=== PATIENT | female | born 1955 | race Caucasian/White ===

== ENCOUNTER 2022-06-29 09:34 | Outpatient (REF) | payer OTHER, SELFPAY ==
[2022-06-29 09:52] LABS: MANUAL DIFF FLAG NO
[2022-06-29 10:30] LABS: Basophils Absolute Auto 0.1 X10*3/uL (0.0-0.2); Basophils Percent Auto 0.9 % (0-2); Eosinophils Absolute Auto 0.1 X10*3/uL (0.0-0.4); Hematocrit 40.1 % (37.0-47.0); Hemoglobin 13.4 g/dl (12.0-16.0); Imm Gran Abs Auto 0.02 X10*3/uL (0.00-0.03); Imm Gran Pct Auto 0.4 % (0.0-0.4); Lymphocytes Absolute Auto 1.2 X10*3/uL (1.2-4.9); Lymphocytes Percent Auto 22.7 % (20-40); Mean Corpuscular HGB Conc 33.4 g/dl (31.0-35.0); Mean Corpuscular Hemoglobin 34.4 pg (27.0-33.0); Mean Corpuscular Volume 103.1 fL (80.0-98.0); Mean Platelet Volume 10.6 fL (9.4-12.3); Monocytes Absolute Auto 0.3 X10*3/uL (0.1-1.2); Monocytes Percent Auto 6.3 % (2-11); Neutrophils Absolute Auto 3.7 x10*3/uL (2.0-8.3); Neutrophils Percent Auto 67.7 % (45-73); Platelet Count 265 X10*3/uL (160-400); Red Blood Count 3.89 X10*6/uL (4.20-5.50); Red Cell Distribution Width 14.3 % (11.0-16.0); Retic HGB Equivalent 40.5 pg (30.0-35.0); Reticulocyte Percent 1.9 % (0.5-1.8); Reticulocytes Absolute 0.073 X10*6/uL (0.026-0.095); White Blood Count 5.4 X10*3/uL (4.8-10.8)
[2022-06-29 11:19] LABS: Alanine Aminotransferase 76 U/L (0-31); Albumin Level 4.3 g/dL (3.5-5.0); Alkaline Phosphatase 63 U/L (39-117); Anion Gap 13 (12-20); Aspartate Amino Transferase 46 U/L (5-31); Bilirubin Total 0.7 mg/dL (0.0-1.0); Blood Urea Nitrogen 13 mg/dL (9-16); Calcium 9.4 mg/dL (8.4-10.2); Carbon Dioxide 28 mmol/L (22-29); Chloride 105 mmol/L (96-108); Estimated Glomerular Filt Rate > 60; Glucose Random 121 mg/dL (60-115); Potassium 4.3 mmol/L (3.3-5.1); Sodium 142 mmol/L (135-145); Total Protein 6.3 g/dL (6.5-8.0)
[2022-06-29 11:35] LABS: Folate 19.5 ng/mL (> or = 4.0); Thyroid Stimulating Hormone 1.81 uIU/mL (0.32-4.0); Vitamin B12 861 pg/mL (200-900)
[2022-06-30 05:20] LABS: HIV AB/AG Nonreactive (Nonreactive); HIV Num 1 0.06 S/CO (0.00-0.99)
[2022-07-01 01:49] LABS: Erythropoietin (EPO) 9.2 mIU/mL (2.6-18.5)
[2022-07-01 14:28] LABS: Haptoglobin 120 mg/dL (43-212)
[2022-07-01 15:34] LABS: IgA 143 mg/dL (70-320); IgG 655 mg/dL (600-1540); IgM 39 mg/dL (50-300)
[2022-07-01 23:04] LABS: Prot Elec - Albumin 4.2 g/dL (3.8-4.8); Prot Elec - Alpha1 0.3 g/dL (0.2-0.3); Prot Elec - Alpha2 0.7 g/dL (0.5-0.9); Prot Elec - Beta 1 0.4 g/dL (0.4-0.6); Prot Elec - Beta 2 0.3 g/dL (0.2-0.5); Prot Elec - Gamma 0.6 g/dL (0.8-1.7); Prot Elec - Total Protein 6.4 g/dL (6.1-8.1)
== END 2022-06-29 09:35 | disposition home or self-care (01) ==
LOC: HO.LAB 09:34
PROVIDERS: PCP Family Medicine; Visit Provider Internal Medicine Medical Oncology
DX: D53.9 Nutritional anemia, unspecified (principal)
CPT/HCPCS: 36415; 80053; 82607; 82668; 82746; 82784; 83010; 84165; 84443; 85025; 85045; 86334; 87389

== ENCOUNTER 2022-09-14 09:57 | Outpatient (REF) | payer OTHER, SELFPAY ==
[2022-09-14 10:18] LABS: MANUAL DIFF FLAG NO
[2022-09-14 13:19] LABS: Basophils Percent Auto 0.3 % (0-2); Eosinophils Absolute Auto 0.2 X10*3/uL (0.0-0.4); Hematocrit 39.1 % (37.0-47.0); Imm Gran Abs Auto 0.11 X10*3/uL (0.00-0.03); Imm Gran Pct Auto 1.2 % (0.0-0.4); Lymphocytes Absolute Auto 3.5 X10*3/uL (1.2-4.9); Lymphocytes Percent Auto 37.8 % (20-40); Mean Corpuscular HGB Conc 33.2 g/dl (31.0-35.0); Mean Corpuscular Hemoglobin 34.9 pg (27.0-33.0); Mean Corpuscular Volume 105.1 fL (80.0-98.0); Mean Platelet Volume 10.5 fL (9.4-12.3); Monocytes Absolute Auto 0.7 X10*3/uL (0.1-1.2); Monocytes Percent Auto 7.7 % (2-11); Neutrophils Absolute Auto 4.7 x10*3/uL (2.0-8.3); Platelet Count 292 X10*3/uL (160-400); Red Blood Count 3.72 X10*6/uL (4.20-5.50); Red Cell Distribution Width 13.2 % (11.0-16.0); White Blood Count 9.3 X10*3/uL (4.8-10.8)
[2022-09-14 13:33] LABS: Alanine Aminotransferase 19 U/L (0-31); Albumin Level 3.9 g/dL (3.5-5.0); Alkaline Phosphatase 43 U/L (39-117); Anion Gap 12 (12-20); Aspartate Amino Transferase 16 U/L (5-31); Bilirubin Total 0.5 mg/dL (0.0-1.0); Blood Urea Nitrogen 12 mg/dL (9-16); Carbon Dioxide 29 mmol/L (22-29); Chloride 105 mmol/L (96-108); Estimated Glomerular Filt Rate > 60; Gamma Glutamyl Transpeptidase 16 U/L (7-33); Glucose Random 76 mg/dL (60-115); Potassium 4.1 mmol/L (3.3-5.1); Sodium 142 mmol/L (135-145); Total Protein 5.6 g/dL (6.5-8.0)
== END 2022-09-14 09:58 | disposition home or self-care (01) ==
LOC: HO.LAB 09:57
PROVIDERS: Visit Provider Internal Medicine Medical Oncology
DX: D53.9 Nutritional anemia, unspecified (principal); E78.2 Mixed hyperlipidemia
CPT/HCPCS: 36415; 80053; 82977; 85025

== ENCOUNTER 2022-09-24 10:57 | Outpatient (REF) | payer OTHER, SELFPAY ==
[2022-09-24 13:03] LABS: Alanine Aminotransferase 20 U/L (0-31); Aspartate Amino Transferase 22 U/L (5-31); Cholesterol 232 mg/dL; HDL Cholesterol 56 mg/dL; LDL Cholesterol Calculated 154 mg/dl; Triglycerides 111 mg/dL
== END 2022-09-24 10:58 | disposition home or self-care (01) ==
LOC: HO.LAB 10:57
PROVIDERS: Visit Provider Family Medicine
DX: E78.2 Mixed hyperlipidemia (principal)
CPT/HCPCS: 36415; 80061; 84450; 84460

== ENCOUNTER 2022-12-14 10:27 | Outpatient (REF) | payer OTHER, SELFPAY ==
[2022-12-14 10:41] LABS: MANUAL DIFF FLAG NO
[2022-12-14 11:09] LABS: Basophils Absolute Auto 0.1 X10*3/uL (0.0-0.2); Basophils Percent Auto 1.2 % (0-2); Eosinophils Absolute Auto 0.2 X10*3/uL (0.0-0.4); Hematocrit 39.8 % (37.0-47.0); Imm Gran Abs Auto 0.04 X10*3/uL (0.00-0.03); Imm Gran Pct Auto 0.7 % (0.0-0.4); Immature Retic Fraction 14.7 % (3.0-15.9); Lymphocytes Absolute Auto 1.8 X10*3/uL (1.2-4.9); Lymphocytes Percent Auto 29.4 % (20-40); Mean Corpuscular HGB Conc 32.7 g/dl (31.0-35.0); Mean Corpuscular Hemoglobin 34.2 pg (27.0-33.0); Mean Corpuscular Volume 104.7 fL (80.0-98.0); Mean Platelet Volume 10.6 fL (9.4-12.3); Monocytes Absolute Auto 0.5 X10*3/uL (0.1-1.2); Monocytes Percent Auto 8.6 % (2-11); Neutrophils Absolute Auto 3.5 x10*3/uL (2.0-8.3); Neutrophils Percent Auto 57.1 % (45-73); Platelet Count 286 X10*3/uL (160-400); Red Cell Distribution Width 13.5 % (11.0-16.0); Retic HGB Equivalent 39.8 pg (30.0-35.0); Reticulocyte Percent 2.2 % (0.5-1.8); Reticulocytes Absolute 0.083 X10*6/uL (0.026-0.095); White Blood Count 6.1 X10*3/uL (4.8-10.8)
[2022-12-14 11:50] LABS: Alanine Aminotransferase 16 U/L (0-31); Albumin Level 3.9 g/dL (3.5-5.0); Alkaline Phosphatase 60 U/L (39-117); Anion Gap 10 (12-20); Aspartate Amino Transferase 21 U/L (5-31); Bilirubin Total 0.5 mg/dL (0.0-1.0); Blood Urea Nitrogen 16 mg/dL (9-16); Calcium 9.4 mg/dL (8.4-10.2); Carbon Dioxide 28 mmol/L (22-29); Chloride 106 mmol/L (96-108); Estimated Glomerular Filt Rate > 60; Glucose Random 88 mg/dL (60-115); Potassium 4.4 mmol/L (3.3-5.1); Sodium 140 mmol/L (135-145); Total Protein 6.2 g/dL (6.5-8.0)
== END 2022-12-14 10:28 | disposition home or self-care (01) ==
LOC: HO.LAB 10:27
PROVIDERS: PCP Family Medicine; Visit Provider Internal Medicine Medical Oncology
DX: D75.89 Other specified diseases of blood and blood-forming organs (principal)
CPT/HCPCS: 36415; 80053; 85025; 85045

== ENCOUNTER 2023-02-08 09:38 | Outpatient (REF) | payer OTHER, SELFPAY ==
--- NOTE | ~2023-02-08 | MM_ITS ---
EXAMINATION: BONE DENSITOMETRY CLINICAL INDICATION: Asymptomatic menopausal state. COMPARISON: This is the patient's baseline examination. TECHNIQUE: Using a Popset DXA System (software version: 13.1) manufactured by [employer], dual-energy x-ray absorptiometry was performed of the lumbar spine and left hip. The images are of good technical quality. Summary results are attached. FINDINGS: AP SPINE L1-L2 (excluding L3 and L4): The data of L1-L4 has been changed to exclude the L3 and L4 vertebral bodies, because degenerative sclerosis at these levels may cause overestimation of lumbar spine density. BMD 1.024 g/cm2, Z-score 0.3, T-score -1.2, osteopenia. LEFT FEMUR, NECK: BMD 0.791 g/cm2, Z-score -0.3, T-score -1.8, osteopenia. LEFT FEMUR, TOTAL: BMD 0.909 g/cm2, Z-score 0.4, T-score -0.8, normal. IDENTIFIED RISK FACTORS: Osteoporosis. Menopause. HISTORY OF FRACTURE: None listed. MEDICATIONS: Calcium supplement and/or multivitamin. Vitamin D. MM/XR DEXA axial skeleton IMPRESSION: 1. DIAGNOSIS: Osteopenia based on the lowest T-score value of -1.8 in the femoral neck applying World Health Organization criteria. 2. 10-YEAR FRACTURE RISK PREDICTION, FRAX: Major osteoporotic fracture (clinical spine, forearm, hip or shoulder) 10.5%. Hip fracture 1.5%. 3. Treatment Recommendations: NOF guidelines recommend consideration for treatment in postmenopausal women and men age 50 and older presenting with the following: -A hip or vertebral (clinical or morphometric) fracture. -T-score less than or equal to -2.5 at the femoral neck or spine after appropriate evaluation to exclude secondary causes. -Low bone mass at the hip or spine and a 10-year fracture probability by FRAX of greater than or equal to 3% for hip fracture or greater than or equal to 20% for major osteoporotic fracture based on the [place] adapted WHO algorithm. 4. Other Recommendations: All treatment decisions require clinical judgment and consideration of individual patient factors, including patient preferences, comorbidities, previous drug use, risk factors not captured in the FRAX model (e.g. frailty, falls, vitamin D deficiency, increased bone turnover, interval significant decline in bone density) and possible under or overestimation of fracture risk by FRAX. Additional medical evaluation for secondary cause of low bone mineral density may be appropriate. FUTURE SCAN RECOMMENDATION: People with diagnosed cases of osteoporosis or at high risk for fracture should have regular bone mineral density tests. For patients eligible for Medicare, routine testing is allowed once every 2 years. The testing frequency can be increased to one year for patients who have rapidly progressing disease, those who are receiving or discontinuing medical therapy to restore bone mass, or have additional risk factors.
== END 2023-02-08 09:39 | disposition home or self-care (01) ==
LOC: HO.MAMMO 09:38
PROVIDERS: PCP Family Medicine; Visit Provider Family Medicine
DX: Z13.820 Encounter for screening for osteoporosis (principal); Z78.0 Asymptomatic menopausal state
CPT/HCPCS: 77080

== ENCOUNTER → 2023-02-08 09:45 | Outpatient (BNV) | payer OTHER, SELFPAY | PROVIDERS: PCP Family Medicine; Visit Provider Radiology Diagnostic Radiology | DX: M85.89 Other specified disorders of bone density and structure, multiple sites (principal) | CPT/HCPCS: 77080 ==

== ENCOUNTER 2023-04-15 11:23 | Outpatient (REF) | payer OTHER, SELFPAY ==
[2023-04-15 11:40] LABS: MANUAL DIFF FLAG NO
[2023-04-15 11:56] LABS: Basophils Percent Auto 0.7 % (0-2); Eosinophils Absolute Auto 0.2 X10*3/uL (0.0-0.4); Eosinophils Percent Auto 2.9 % (0-4); Hematocrit 39.4 % (37.0-47.0); Hemoglobin 13.3 g/dl (12.0-16.0); Imm Gran Abs Auto 0.05 X10*3/uL (0.00-0.03); Imm Gran Pct Auto 0.8 % (0.0-0.4); Immature Retic Fraction 15.4 % (3.0-15.9); Lymphocytes Absolute Auto 1.4 X10*3/uL (1.2-4.9); Lymphocytes Percent Auto 22.8 % (20-40); Mean Corpuscular HGB Conc 33.8 g/dl (31.0-35.0); Mean Corpuscular Hemoglobin 34.5 pg (27.0-33.0); Mean Corpuscular Volume 102.1 fL (80.0-98.0); Mean Platelet Volume 9.8 fL (9.4-12.3); Monocytes Absolute Auto 0.5 X10*3/uL (0.1-1.2); Monocytes Percent Auto 8.2 % (2-11); Neutrophils Absolute Auto 3.9 x10*3/uL (2.0-8.3); Neutrophils Percent Auto 64.6 % (45-73); Platelet Count 257 X10*3/uL (160-400); Red Blood Count 3.86 X10*6/uL (4.20-5.50); Red Cell Distribution Width 13.2 % (11.0-16.0); Retic HGB Equivalent 40.8 pg (30.0-35.0); Reticulocyte Percent 2.3 % (0.5-1.8)
[2023-04-15 12:30] LABS: Alanine Aminotransferase 18 U/L (0-31); Anion Gap 11 (12-20); Aspartate Amino Transferase 20 U/L (5-31); Blood Urea Nitrogen 15 mg/dL (9-16); Calcium 9.2 mg/dL (8.4-10.2); Carbon Dioxide 28 mmol/L (22-29); Chloride 106 mmol/L (96-108); Cholesterol 231 mg/dL (<200); Estimated Glomerular Filt Rate > 60; Glucose Random 96 mg/dL (60-115); HDL Cholesterol 64 mg/dL (>40); LDL Cholesterol Calculated 127 mg/dL (<100); Potassium 4.2 mmol/L (3.3-5.1); Sodium 141 mmol/L (135-145); Triglycerides 204 mg/dL (<150)
[2023-04-15 12:42] LABS: Alanine Aminotransferase 14 U/L (0-31); Alkaline Phosphatase 61 U/L (39-117); Anion Gap 10 (12-20); Aspartate Amino Transferase 20 U/L (5-31); Bilirubin Total 0.6 mg/dL (0.0-1.0); Blood Urea Nitrogen 15 mg/dL (9-16); Calcium 9.2 mg/dL (8.4-10.2); Carbon Dioxide 28 mmol/L (22-29); Chloride 106 mmol/L (96-108); Estimated Glomerular Filt Rate > 60; Glucose Random 97 mg/dL (60-115); Lactate Dehydrogenase 160 U/L (122-220); Potassium 4.3 mmol/L (3.3-5.1); Sodium 140 mmol/L (135-145); Total Protein 6.4 g/dL (6.5-8.0)
[2023-04-15 22:45] LABS: Haptoglobin 125 MG/DL ((30-200))
== END 2023-04-15 11:24 | disposition home or self-care (01) ==
LOC: HO.LAB 11:23
PROVIDERS: PCP Family Medicine; Visit Provider Internal Medicine Medical Oncology
DX: D75.89 Other specified diseases of blood and blood-forming organs (principal); I10 Essential (primary) hypertension; E78.2 Mixed hyperlipidemia
CPT/HCPCS: 36415; 80048; 80053; 80061; 83010; 83615; 84450; 84460; 85025; 85045

== ENCOUNTER 2023-08-22 13:53 | Outpatient (REF) | payer OTHER, SELFPAY ==
[2023-08-22 14:07] LABS: MANUAL DIFF FLAG NO
[2023-08-22 14:42] LABS: Basophils Percent Auto 0.8 % (0-2); Eosinophils Absolute Auto 0.1 X10*3/uL (0.0-0.4); Eosinophils Percent Auto 2.2 % (0-4); Hematocrit 39.4 % (37.0-47.0); Hemoglobin 13.2 g/dl (12.0-16.0); Imm Gran Abs Auto 0.02 X10*3/uL (0.00-0.03); Imm Gran Pct Auto 0.4 % (0.0-0.4); Immature Retic Fraction 15.4 % (3.0-15.9); Lymphocytes Absolute Auto 1.6 X10*3/uL (1.2-4.9); Lymphocytes Percent Auto 31.6 % (20-40); Mean Corpuscular HGB Conc 33.5 g/dl (31.0-35.0); Mean Corpuscular Hemoglobin 35.1 pg (27.0-33.0); Mean Corpuscular Volume 104.8 fL (80.0-98.0); Mean Platelet Volume 10.2 fL (9.4-12.3); Monocytes Absolute Auto 0.6 X10*3/uL (0.1-1.2); Neutrophils Absolute Auto 2.7 x10*3/uL (2.0-8.3); Platelet Count 282 X10*3/uL (160-400); Red Blood Count 3.76 X10*6/uL (4.20-5.50); Red Cell Distribution Width 13.8 % (11.0-16.0); Retic HGB Equivalent 38.1 pg (30.0-35.0); Reticulocyte Percent 2.1 % (0.5-1.8)
[2023-08-22 15:20] LABS: Alanine Aminotransferase 15 U/L (0-31); Albumin Level 4.1 g/dL (3.5-5.0); Alkaline Phosphatase 54 U/L (39-117); Anion Gap 13 (12-20); Aspartate Amino Transferase 18 U/L (5-31); Bilirubin Total 0.5 mg/dL (0.0-1.0); Blood Urea Nitrogen 17 mg/dL (9-16); Calcium 9.8 mg/dL (8.4-10.2); Carbon Dioxide 29 mmol/L (22-29); Chloride 105 mmol/L (96-108); Cholesterol 254 mg/dL (<200); Estimated Glomerular Filt Rate > 60; Glucose Fasting 92 mg/dL (60-99); HDL Cholesterol 61 mg/dL (>40); LDL Cholesterol Calculated 165 mg/dL (<100); Lactate Dehydrogenase 139 U/L (122-220); Potassium 4.2 mmol/L (3.3-5.1); Sodium 143 mmol/L (135-145); Total Protein 6.4 g/dL (6.5-8.0); Triglycerides 141 mg/dL (<150)
[2023-08-22 15:37] LABS: Folate 18.9 ng/mL (> or = 4.0); Vitamin B12 1478 pg/mL (200-900)
== END 2023-08-22 13:54 | disposition home or self-care (01) ==
LOC: HO.LAB 13:53
PROVIDERS: PCP Family Medicine; Visit Provider Internal Medicine Medical Oncology
DX: D75.89 Other specified diseases of blood and blood-forming organs (principal); I10 Essential (primary) hypertension; E78.2 Mixed hyperlipidemia; E66.3 Overweight; F32.9 Major depressive disorder, single episode, unspecified
CPT/HCPCS: 36415; 80053; 80061; 82607; 82746; 83615; 85025; 85045

== ENCOUNTER 2023-08-31 13:51 | Emergency (ER) | payer OTHER, SELFPAY ==
[2023-08-31 14:13] VITALS: BP 156/78; PULSE 65; RESP 20; TEMP 36.6; O2SAT 97; BMI 27.5
--- NOTE | 2023-08-31 14:17 | ED.GENADULT ---
HPI - General Adult General Chief complaint: Recheck/Abnormal Lab/Rx Stated complaint: Blood work Time Seen by Provider: 08/31/23 14:20 Source: patient and RN notes reviewed Mode of arrival: ambulatory Limitations: no limitations History of Present Illness HPI narrative: This is a 67-year-old female presenting to the emergency department for blood work. Patient states that she was having dental cleaning performed today and the dental hygienist accidentally cut herself with use tools that were already used on patient. The patient states that the dental hygienist was requesting lab work to be performed. Patient denies any blood borne diseases. 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 No other complaints or concerns this time. MD complaint: Blood work Onset (ago): day(s) Relieving factors: none Exacerbating factors: none Associated symptoms: denies other symptoms Treatments prior to arrival: none Related Data Allergies Allergy/AdvReac Type Severity Reaction Status Date / Time No Known Allergies Allergy Verified 08/31/23 14:19 Review of Systems Review of Systems: Yes all other systems are reviewed and are negative Constitutional: Constitutional: Reports as per HPI [facility] Past Medical History Attestation statement: The following information was validated with the patient. Social History Social History Advance Directives: No Physical Exam ED Vital Signs: Vital Signs - 24 hr 08/31/23 14:13 Temperature 97.8 F Pulse Rate 65 Respiratory Rate 20 Blood Pressure 156/78 H Pulse Oximetry 97 Oxygen Delivery Method Room Air BMI result Body Mass Index 27.5 Const General: cooperative, comfortable and no acute distress Orientation/consciousness: patient oriented x3 Limitations: no limitations HENMT Head: Yes normal to inspection, Yes normocephalic and Yes atraumatic Ears: hearing grossly normal bilaterally General nose exam: Normal external nose present Face and sinus: Yes normal facial exam Mouth: Normal oral and palatal mucosa present, oropharynx normal and moist mucous membranes Throat: Yes posterior oropharynx normal Eyes General: appearance normal, both eyes and all related structures Eyelids: Yes eyelids normal Conjunctivae: conjunctivae normal Sclerae: sclerae normal Pupils: Equal, round and reactive pupils present EOM: EOMs intact bilaterally Neck Neck: Yes normal visual inspection, Yes full ROM and Yes no lymphadenopathy Lymphatic: no lymphadenopathy noted Chest Chest palpation & inspection: normal inspection of the chest Resp Effort & Inspection: normal respiratory effort and able to speak in complete sentences Auscultation: clear to auscultation bilaterally Cardio Rate: regular rate Rhythm: regular rhythm Heart sounds: S1 normal heart sound present and S2 normal heart sound present GI Inspection: Yes normal to inspection Skin General skin exam: no rashes or lesions noted Trauma: no lacerations or abrasions Wounds: no wounds Neuro General: patient oriented x3 and moves all extremities Cranial nerves: Yes Equal, round and reactive pupils present Extrem General: Yes normal to inspection Right upper extremity: normal to inspection Left upper extremity: normal to inspection Right lower extremity: normal to inspection Left lower extremity: normal to inspection Course Course Course Narrative: This is an RME: Additional HPI, ROS, PE not included below will be deferred to primary provider. This is a 67 - with a hx of HTN, HLD, microencentesis, Medical Decision Making Medical Decision Making MDM Narrative: This is a 67-year-old female, with no known blood borne illness, who presents emergency department for blood work after her dental hygienist accidentally cut herself with a dirty tool. Patient denies any blood borne pathogens. Advised patient that we will happily test her for hep B, hep C, and HIV. Advised to check the portal once these results return. Patient is feeling well, no current complaints. Blood pressure mildly elevated at 156/78, all other vital signs within normal limits. Patient has the patient portal set up, will follow-up there, advised to follow-up with primary care physician. She understands and agrees with plan. Patient stable discharge Plan: HIV, hepatitis-B panel Differential Diagnosis Differential Diagnoses: The differential diagnosis associated with the presentation includes Post exposure blood testing, routine blood work, wellness check Discharge Plan Discharge Clinical Impression: Encounter for blood test Patient Disposition: Home, Self-Care Additional Instructions: You were seen in the emergency department for HIV and hepatitis blood testing. These results will be posted to your portal. Follow-up with your primary care physician regarding this visit. If any new or worsening symptoms occur, including chest pain, shortness of breath, please return for re-evaluation.
[2023-08-31 14:53] VITALS: BP 156/78; PULSE 65; RESP 20; TEMP 36.6; O2SAT 97
[2023-09-01 07:22] LABS: HBc Num1 0.09 S/CO (0.00-0.79); HBsAGNum1 0.27 S/CO (0.00-0.99); HIV AB/AG Nonreactive (Nonreactive); HIV Num 1 0.04 S/CO (0.00-0.99); Hepatitis B Core Antibody Nonreactive (Nonreactive); Hepatitis B Surface Antigen Negative (Negative); ~HepC Num1 0.05 S/CO (0.00-0.79); ~Hepatitis B Surface Antibody NONREACTIVE (Nonreactive); ~Hepatitis C Antibody Nonreactive (Nonreactive)
== END 2023-08-31 14:54 | disposition home or self-care (01) ==
PROVIDERS: Physician Assistant Medical; Emergency Provider Emergency Medicine; PCP Family Medicine
DX: Z02.79 Encounter for issue of other medical certificate (principal); Z11.59 Encounter for screening for other viral diseases
CPT/HCPCS: 36415; 86704; 86706; 86803; 87340; 87389; 99282; 99283

== ENCOUNTER 2023-12-27 11:16 | Outpatient (REF) | payer OTHER, SELFPAY ==
[2023-12-27 11:29] LABS: MANUAL DIFF FLAG NO
[2023-12-27 12:33] LABS: Basophils Percent Auto 0.7 % (0-2); Eosinophils Absolute Auto 0.2 X10*3/uL (0.0-0.4); Eosinophils Percent Auto 2.8 % (0-4); Hematocrit 38.5 % (37.0-47.0); Imm Gran Abs Auto 0.03 X10*3/uL (0.00-0.03); Imm Gran Pct Auto 0.6 % (0.0-0.4); Immature Retic Fraction 18.4 % (3.0-15.9); Lymphocytes Absolute Auto 1.4 X10*3/uL (1.2-4.9); Lymphocytes Percent Auto 25.9 % (20-40); Mean Corpuscular HGB Conc 33.8 g/dl (31.0-35.0); Mean Corpuscular Hemoglobin 35.1 pg (27.0-33.0); Mean Corpuscular Volume 104.1 fL (80.0-98.0); Mean Platelet Volume 10.6 fL (9.4-12.3); Monocytes Absolute Auto 0.5 X10*3/uL (0.1-1.2); Monocytes Percent Auto 8.9 % (2-11); Neutrophils Absolute Auto 3.3 x10*3/uL (2.0-8.3); Neutrophils Percent Auto 61.1 % (45-73); Platelet Count 247 X10*3/uL (160-400); Red Cell Distribution Width 12.9 % (11.0-16.0); Retic HGB Equivalent 38.6 pg (30.0-35.0); Reticulocytes Absolute 0.074 X10*6/uL (0.026-0.095); White Blood Count 5.4 X10*3/uL (4.8-10.8)
[2023-12-27 13:05] LABS: Alanine Aminotransferase 16 U/L (0-31); Albumin Level 4.1 g/dL (3.5-5.0); Alkaline Phosphatase 57 U/L (39-117); Anion Gap 9 (12-20); Aspartate Amino Transferase 18 U/L (5-31); Bilirubin Total 0.5 mg/dL (0.0-1.0); Blood Urea Nitrogen 14 mg/dL (9-16); Calcium 9.4 mg/dL (8.4-10.2); Carbon Dioxide 31 mmol/L (22-29); Chloride 105 mmol/L (96-108); Estimated Glomerular Filt Rate > 60; Glucose Random 91 mg/dL (60-115); Potassium 3.8 mmol/L (3.3-5.1); Sodium 141 mmol/L (135-145); Total Protein 6.2 g/dL (6.5-8.0)
[2023-12-27 13:17] LABS: Erythrocyte Sedimentation Rate 2 MM/HR (0-20)
== END 2023-12-27 11:17 | disposition home or self-care (01) ==
LOC: HO.LAB 11:16
PROVIDERS: PCP Family Medicine; Visit Provider Internal Medicine Medical Oncology
DX: D75.89 Other specified diseases of blood and blood-forming organs (principal)
CPT/HCPCS: 36415; 80053; 85025; 85045; 85652

== ENCOUNTER 2024-06-11 11:43 | Outpatient (REF) | payer OTHER, SELFPAY ==
[2024-06-11 12:32] LABS: Hematocrit 39.4 % (37.0-47.0); Hemoglobin 13.6 g/dl (12.0-16.0); Mean Corpuscular HGB Conc 34.5 g/dl (31.0-35.0); Mean Corpuscular Hemoglobin 35.1 pg (27.0-33.0); Mean Corpuscular Volume 101.5 fL (80.0-98.0); Mean Platelet Volume 10.5 fL (9.4-12.3); Platelet Count 252 X10*3/uL (160-400); Red Blood Count 3.88 X10*6/uL (4.20-5.50); Red Cell Distribution Width 13.1 % (11.0-16.0); White Blood Count 5.7 X10*3/uL (4.8-10.8)
[2024-06-11 12:59] LABS: Alanine Aminotransferase 29 U/L (0-31); Anion Gap 8 (12-20); Aspartate Amino Transferase 27 U/L (5-31); Blood Urea Nitrogen 18 mg/dL (9-16); Calcium 9.3 mg/dL (8.4-10.2); Carbon Dioxide 31 mmol/L (22-29); Chloride 108 mmol/L (96-108); Cholesterol 143 mg/dL (<200); Estimated Glomerular Filt Rate > 60; Glucose Random 89 mg/dL (60-115); HDL Cholesterol 57 mg/dL (>40); LDL Cholesterol Calculated 71 mg/dL (<100); Potassium 4.1 mmol/L (3.3-5.1); Sodium 143 mmol/L (135-145); Triglycerides 79 mg/dL (<150)
--- OUTSIDE RECORDS SUMMARY | 2024-06-11 13:58 | XMS_ITS ---
Author Organization Vipul Stokes III, MD Address [address] [place] [address] Care Team Providers Care Cook Cashier Food Prep Name Role Phone YASMINE POLANCO Primary Care Provider Unavailab Vipul Thompson Unavailable [phone] Allergies Allergen (clinical drug ingredient) Drug/Non Drug Allergy documented on EMR Reaction Allergy Type Onset Date Status Iodinated contrast media (substance) Iodinated Diagnostic Agents Unknown Drug Allergy Active REASON FOR VISIT Macrocytosis, Hypertension, Hyperlipidemia, Atypical ductal hyperplasia, Osteopenia, Reactive depression Medications Medication SIG (Take, Route, Frequency, Duration) Notes Start Date End Date Status hydroCHLOROthiazide 12.5 MG Oral Active Atorvastatin Calcium 10 MG TAKE 1 TABLET BY MOUTH EVERY DAY Oral Active Calcium 600 MG 1 tablet Orally Once a day Active Super B Complex - as directed Orally Active Raloxifene HCl 60 MG Oral Active Rhopressa 0.02 % Ophthalmic Ac tive Lumigan 0.01 % Ophthalmic Acti ve Timolol Maleate 0.5 % PLACE 1 DROP INTO EACH EYE EVERY MORNING. Ophthalmic Active Bimatoprost 0.03 % 1 drop into affected eye in the evening Ophthalmic Once a day Active Citalopram Hydrobromide 20 MG Oral Active Social History Tobacco Use: Social History Observation Description Date Details (start date - stop date) Never Smoker NA - NA Sex Assigned At : Social History Observation Description Sex Assigned At Female Tobacco Use/Smoking Question Answer Notes Patient is a nonsmoker Additional Findings: Tobacco Non-User Aggressive non-smoker Vital Signs Temperature 97.5 degrees Fahrenheit 04/26/20 23 Blood pressure systolic 138 mm Hg 04/26/20 23 Blood pressure diastolic 68 mm Hg 023 Heart Rate 72 /min 04/26/2023 Height 64 in 04/26/2023 Weight 165 lbs 04/26/2023 BMI 28.32 kg/m2 04/26/2023 Encounters Encounter Location Date Provider Diagnosis Vipul Stokes III, MD [address] [place] [address] DR FARIAS, MELISSA [id number] 04/26/2023 Vipul Stokes Macrocytosis D75.89 ; HTN (hypertension) I10 ; Mixed hyperlipidemia E78.2 ; Overweight E66.3 and Reactive depression F32.9 Assessments Encounter Date Diagnosis (ICD Code) Assessment Notes Treat ment Notes Treatment Clinical Notes 04/26/2023 Macrocytosis (ICD-10 - D75.89) Her mean cell volume has decreased 102. Her hemoglobin and hematocrit are stable. This makes it more likely we are dealing with the dietary factor that is resolving. There is no evidence for neoplastic process. She will continue to be followed without invasive procedures. 04/26/2023 HTN (hypertension) (ICD-10 - I10) Her blood pressure today was 138/68. No change in her regimen seems needed. We discussed sodium restriction andd weight loss. 04/26/2023 Mixed hyperlipidemia (ICD-10 - E78.2) I have recommended regular physical activity combined with weight loss and a healthy diet low in animal fat. 04/26/2023 Overweight (ICD-10 - E66.3) We have discussed diet and nutrition. We made a plan to lose weight at a rate of one half of a pound per week. 04/26/2023 Reactive depression (ICD-10 - F32.9) Her depression is very mild at this time. She is completing all of the tasks of daily living without impairment. Plan Of Treatment Medication Medication Name Sig Start Date Stop Date Notes hydroCHLOROthiazide 12.5 MG Oral Atorvastatin Calcium 10 MG TAKE 1 TABLET BY MOUTH EVERY DAY Oral Calcium 600 MG 1 tablet Orally Once a day Super B Complex - as directed Orally Raloxifene HCl 60 MG Oral Rhopressa 0.02 % Ophthalmic Lumigan 0.01 % Ophthalmic Timolol Maleate 0.5 % PLACE 1 DROP INTO EACH EYE EVERY MORNING. Ophthalmic Citalopram Hydrobromide 20 MG Oral Pending Test Test Name Order Date PROFILE, FASTING (COMPREHENSIVE METABOLI C) 04/26/2023 LDH 04/26/2023 CBC WITH AUTO DIFF 04/26/2023 RETIC 04/26/2023 Lipid Panel 04/26/2023 Vitamin B12 and Folate 04/26/2023 Next Appt Details Follow Up: 5 M, Reason: OV Provider Name:Vipul Stokes, 01/03/2025 10:00:00 AM, [address] [place] [address] ANDREA TRUJILLO, [place], [id number], Progress Notes * MAGALY SAWANTOB: 6 (67 yo F)Acc No.[id number]:04/26/2023 Progress Notes Patient:?JOANN SAWANT Provider:?Vipul Stokes MD :[id number]???Age:67 Y???Sex:Female D ate:04/26/2023 Address:[address] [place] [address] , [place] [id number] Pcp:YASMINE POLANCO Subjective: * Chief Complaints: * ???MacrocytosisHypertensionH yperlipidemiaAtypical ductal hyperplasiaOsteopeniaReactive depression * HPI: ???COVID-19 Screening:?Questions?Have you experienced fever, chills, cough, sore throat, shortness of breath, difficulty breathing, muscle aches, loss of taste or smell??No ?Have you been exposed to the virus within the last 10 days??No ?Have you travelled internationally in the last 10 days??No ?Have you been exposed to COVID-19 in the past??No ? She returns for ongoing management of her macrocytic anemia. She is feeling healthy and well. She has had no blood transfusions or bleeding episodes. She has had no constitutional B symptoms. Her examination today was unremarkable. There was no adenopathy splenomegaly, petechiae or purpura. * ROS:?General/Constitutional:?pain?only normal aches and pains.?Chills?denies.?Fatigue?admits.?Fever?denies.?ENT:?Decreased hearing?denies.?Respiratory:?Cough?denies.?Cardiovascular:?Chest pain with exertion?denies.?Dyspnea on exertion?denies.?Shortness of breath?denies.?Gastrointestinal:?Constipation?occasional.?Decreased appetite?denies.?Diarrhea?denies.?Heartburn?denies.?Nausea?denies.?Rectal bleeding?denies.?Vomiting?denies.?Hematology:?bruising?denies.?petechiae?denies.?Swollen glands?none have been noted.?Genitourinary:?Frequent urination?denies.?Musculoskeletal:?Muscle aches?denies.?Painful joints?denies.?Sciatica?denies.?Weakness?denies.?Skin:?Itching?denies.?Rash?denies.?Skin lesion(s)?denies.?Neurologic:?Difficulty speaking?denies.?Dizziness?denies.?Headache?denies.?Low back pain?denies.?Psychiatric:?Depressed mood?which is mild.? * Medical History:? * Surgical History:?Cyst remov ed from mid sternum 1994Pilonidal cyst, age 16 3 Breast biopsies-atypical lobular hyperplasia 2002, 2004Colonoscopy, every 5 years, tubular adenoma * Hospitalization/Major Diagno stic Procedure:?Denies Past Hospitalization * Family History:?Father: dece ased, Coronary artery disease, myocardial infarction, diabetes mellitus, diagnosed with DM, CVD.?Mother: , asthma, pneumonia, hypothyroidism, coronary artery disease, diagnosed with CVD.?Siblings: alive, Siblin- Thyroid problem-Sister, Siblin- Healthy-Sister,Siblin- Healthy-Sister,[id number]-[id number],.?1 brother(s) , 5 sister(s) . .? Both parents have a history of coronary [...] substance use disorder or addiction. * Social History:?Tobacco Use:?Tobacco Use/Smoking?Patient is a?nonsmoker ?Additional Findings: Tobacco Non-User?Aggressive non-smoker ???She has been for 44 years. He is disabled with renal cancer and coronary artery disease and has been on dialysis. She has no children. 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 She has no history of exposures. She was born in [place], [place] and lives in [place]. She has no history of cancer, chemotherapy or radiation. She has no temple objection to blood transfusion. She has never had a transfusion. She has no history. * Medications:?TakingBimatopro st 0.03 % Solution 1 drop into affected eye in the evening Ophthalmic Once a dayCalcium 600 MG Tablet 1 tablet Orally Once a daySuper B Complex - Tablet as directed Orally hydroCHLOROthiazide 12.5 MG Tablet Oral Raloxifene HCl 60 MG Tablet Oral Citalopram Hydrobromide 20 MG Tablet Oral Rhopressa 0.02 % Solution Ophthalmic Lumigan 0.01 % Solution Ophthalmic Timolol Maleate 0.5 % Solution PLACE 1 DROP INTO EACH EYE EVERY MORNING. Ophthalmic Taking Bimatoprost 0.03 % Solution 1 drop into affected eye in the evening Ophthalmic Once a dayTaking Calcium 600 MG Tablet 1 tablet Orally Once a dayTaking Super B Complex - Tablet as directed Orally Taking hydroCHLOROthiazide 12.5 MG Tablet Oral Taking Raloxifene HCl 60 MG Tablet Oral Taking Citalopram Hydrobromide 20 MG Tablet Oral Taking Rhopressa 0.02 % Solution Ophthalmic Taking Lumigan 0.01 % Solution Ophthalmic Taking Timolol Maleate 0.5 % Solution PLACE 1 DROP INTO EACH EYE EVERY MORNING. Ophthalmic DiscontinuedAtorvastatin Calcium 10 MG Tablet TAKE 1 TABLET BY MOUTH EVERY DAY Oral Medication List reviewed and reconciled with the patientDiscontinued Atorvastatin Calcium 10 MG Tablet TAKE 1 TABLET BY MOUTH EVERY DAY Oral Medication List reviewed and reconciled with the patient * Allergies:?Iodinated Diagnos tic Agentsno[Allergies Verified] Objective: * Vitals:?Ht: 64, Wt:165, BMI: 28.32, BP:138/68, HR:72, Temp:97.5. * ???Past Orders: Lab:Haptoglobin * Order Date 04/15/2023 06/29/2022 Haptoglobin 125 (Ref Range: (30-200) MG/DL) 120 (Ref Range: 43-212 mg/dL) * Lab:Complete Blood Count Aut o Diff * Order Date 04/15/2023 12/14/2022 09/14/2022 White Blood Count 6.0 (Ref Range: 4.8-10.8 X10*3/uL) 6.1 (Ref Range: 4.8-10.8 X10*3/uL) 9.3 (Ref Range: 4.8-10.8 X10*3/uL) Red Blood Count 3.86?L (Ref Range: 4.20-5.50 X10*6/uL) 3.80?L (Ref Range: 4.20-5.50 X10*6/uL) 3.72?L (Ref Range: 4.20-5.50 X10*6/uL) Hemoglobin 13.3 (Ref Range: 12.0-16.0 g/dl) 13.0 (Ref Range: 12.0-16.0 g/dl) 13.0 (Ref Range: 12.0-16.0 g/dl) Hematocrit 39.4 (Ref Range: 37.0-47.0 %) 39.8 (Ref Range: 37.0-47.0 %) 39.1 (Ref Range: 37.0-47.0 %) Mean Corpuscular Volume 102.1?H (Ref Range: 80.0-98.0 fL) 104.7?H (Ref Range: 80.0-98.0 fL) 105.1?H (Ref Range: 80.0-98.0 fL) Mean Corpuscular Hemoglobin 34.5?H (Ref Range: 27.0-33.0 pg) 34.2?H (Ref Range: 27.0-33.0 pg) 34.9?H (Ref Range: 27.0-33.0 pg) Mean Corpuscular HGB Conc 33.8 (Ref Range: 31.0-35.0 g/dl) 32.7 (Ref Range: 31.0-35.0 g/dl) 33.2 (Ref Range: 31.0-35.0 g/dl) Red Cell Distribution Width 13.2 (Ref Range: 11.0-16.0 %) 13.5 (Ref Range: 11.0-16.0 %) 13.2 (Ref Range: 11.0-16.0 %) Platelet Count 257 (Ref Range: 160-400 X10*3/uL) 286 (Ref Range: 160-400 X10*3/uL) 292 (Ref Range: 160-400 X10*3/uL) Mean Platelet Volume 9.8 (Ref Range: 9.4-12.3 fL) 10.6 (Ref Range: 9.4-12.3 fL) 10.5 (Ref Range: 9.4-12.3 fL) Neutrophils Percent Auto 64.6 (Ref Range: 45-73 %) 57.1 (Ref Range: 45-73 %) 51.0 (Ref Range: 45-73 %) Imm Gran Pct Auto 0.8?H (Ref Range: 0.0-0.4 %) 0.7?H (Ref Range: 0.0-0.4 %) 1.2?H (Ref Range: 0.0-0.4 %) Lymphocytes Percent Auto 22.8 (Ref Range: 20-40 %) 29.4 (Ref Range: 20-40 %) 37.8 (Ref Range: 20-40 %) Monocytes Percent Auto 8.2 (Ref Range: 2-11 %) 8.6 (Ref Range: 2-11 %) 7.7 (Ref Range: 2-11 %) Eosinophils Percent Auto 2.9 (Ref Range: 0-4 %) 3.0 (Ref Range: 0-4 %) 2.0 (Ref Range: 0-4 %) Basophils Percent Auto 0.7 (Ref Range: 0-2 %) 1.2 (Ref Range: 0-2 %) 0.3 (Ref Range: 0-2 %) NRBC Pct Auto 0.0 (Ref Range: 0.0-0.2 /100WBC) 0.0 (Ref Range: 0.0-0.2 /100WBC) 0.0 (Ref Range: 0.0-0.2 /100WBC) Neutrophils Absolute Auto 3.9 (Ref Range: 2.0-8.3 x10*3/uL) 3.5 (Ref Range: 2.0-8.3 x10*3/uL) 4.7 (Ref Range: 2.0-8.3 x10*3/uL) Imm Gran Abs Auto 0.05?H (Ref Range: 0.00-0.03 X10*3/uL) 0.04?H (Ref Range: 0.00-0.03 X10*3/uL) 0.11?H (Ref Range: 0.00-0.03 X10*3/uL) Lymphocytes Absolute Auto 1.4 (Ref Range: 1.2-4.9 X10*3/uL) 1.8 (Ref Range: 1.2-4.9 X10*3/uL) 3.5 (Ref Range: 1.2-4.9 X10*3/uL) Monocytes Absolute Auto 0.5 (Ref Range: 0.1-1.2 X10*3/uL) 0.5 (Ref Range: 0.1-1.2 X10*3/uL) 0.7 (Ref Range: 0.1-1.2 X10*3/uL) Eosinophils Absolute Auto 0.2 (Ref Range: 0.0-0.4 X10*3/uL) 0.2 (Ref Range: 0.0-0.4 X10*3/uL) 0.2 (Ref Range: 0.0-0.4 X10*3/uL) Basophils Absolute Auto 0.0 (Ref Range: 0.0-0.2 X10*3/uL) 0.1 (Ref Range: 0.0-0.2 X10*3/uL) 0.0 (Ref Range: 0.0-0.2 X10*3/uL) NRBC Abs Auto 0.000 (Ref Range: 0.0-0.012 X10*3/uL) 0.000 (Ref Range: 0.0-0.012 X10*3/uL) 0.000 (Ref Range: 0.0-0.012 X10*3/uL) * Lab:RETIC * Order Date 04/15/2023 12/14/2022 06/29/2022 Reticulocytes Absolute 0.090 (Ref Range: 0.026-0.095 X10*6/uL) 0.083 (Ref Range: 0.026-0.095 X10*6/uL) 0.073 (Ref Range: 0.026-0.095 X10*6/uL) Immature Retic Fraction 15.4 (Ref Range: 3.0-15.9 %) 14.7 (Ref Range: 3.0-15.9 %) 15.0 (Ref Range: 3.0-15.9 %) Retic HGB Equivalent 40.8?H (Ref Range: 30.0-35.0 pg) 39.8?H (Ref Range: 30.0-35.0 pg) 40.5?H (Ref Range: 30.0-35.0 pg) Reticulocyte Percent 2.3?H (Ref Range: 0.5-1.8 %) 2.2?H (Ref Range: 0.5-1.8 %) 1.9?H (Ref Range: 0.5-1.8 %) * Lab:Comprehensive Met. Panel * Order Date 04/15/2023 12/14/2022 09/14/2022 Sodium 140 (Ref Range: 135-145 mmol/L) 140 (Ref Range: 135-145 mmol/L) 142 (Ref Range: 135-145 mmol/L) Bilirubin Total 0.6 (Ref Range: 0.0-1.0 mg/dL) 0.5 (Ref Range: 0.0-1.0 mg/dL) 0.5 (Ref Range: 0.0-1.0 mg/dL) Aspartate Amino Transferase 20 (Ref Range: 5-31 U/L) 21 (Ref Range: 5-31 U/L) 16 (Ref Range: 5-31 U/L) Alanine Aminotransferase 14 (Ref Range: 0-31 U/L) 16 (Ref Range: 0-31 U/L) 19 (Ref Range: 0-31 U/L) Total Protein 6.4?L (Ref Range: 6.5-8.0 g/dL) 6.2?L (Ref Range: 6.5-8.0 g/dL) 5.6?L (Ref Range: 6.5-8.0 g/dL) Albumin Level 4.0 (Ref Range: 3.5-5.0 g/dL) 3.9 (Ref Range: 3.5-5.0 g/dL) 3.9 (Ref Range: 3.5-5.0 g/dL) Alkaline Phosphatase 61 (Ref Range: 39-117 U/L) 60 (Ref Range: 39-117 U/L) 43 (Ref Range: 39-117 U/L) Potassium 4.3 (Ref Range: 3.3-5.1 mmol/L) 4.4 (Ref Range: 3.3-5.1 mmol/L) 4.1 (Ref Range: 3.3-5.1 mmol/L) Chloride 106 (Ref Range: 96-108 mmol/L) 106 (Ref Range: 96-108 mmol/L) 105 (Ref Range: 96-108 mmol/L) Carbon Dioxide 28 (Ref Range: 22-29 mmol/L) 28 (Ref Range: 22-29 mmol/L) 29 (Ref Range: 22-29 mmol/L) Anion Gap 10?L (Ref Range: 12-20) 10?L (Ref Range: 12-20) 12 (Ref Range: 12-20) Blood Urea Nitrogen 15 (Ref Range: 9-16 mg/dL) 16 (Ref Range: 9-16 mg/dL) 12 (Ref Range: 9-16 mg/dL) Creatinine 0.63 (Ref Range: 0.5-1.4 mg/dL) 0.72 (Ref Range: 0.5-1.4 mg/dL) 0.70 (Ref Range: 0.5-1.4 mg/dL) Estimated Glomerular Filt Rate > 60 > 60 > 60 Glucose Random 97 (Ref Range: 60-115 mg/dL) 88 (Ref Range: 60-115 mg/dL) 76 (Ref Range: 60-115 mg/dL) Calcium 9.2 (Ref Range: 8.4-10.2 mg/dL) 9.4 (Ref Range: 8.4-10.2 mg/dL) 9.0 (Ref Range: 8.4-10.2 mg/dL) ???Lab:Lactate Dehydrogenase (Order Date - 04/15/2023) (Collection Date - 04/15/2023)?ValueReference Range?Lactate [id number] - U/L * Examination: ???General Examination: ?GENERAL APPEARANCE:?pleasant, well nourished, well developed, in no acute distress, calm and relaxed , overweight , woman.?HEAD:?atraumatic, normocephalic.?EYES:?eomi, perrla, anicteric, conjugate.?EARS:?normal.?NOSE:?septum intact.?ORAL CAVITY:?normal, unremarkable.?NECK/THYROID:?no jugular venous distention, no carotid bruit, thyroid normal.?LYMPH NODES:?no enlarged lymph nodes,spleen normal.?SKIN:?no suspicious lesions, anicteric.?HEART:?no clicks, gallops, murmurs, or rubs, regular rhythm, S1, S2 normal, no s3, or vascular bruits.?LUNGS:?clear to auscultation .?BREASTS:?not examined.?ABDOMEN:?bowel sounds normal, no ascites, no organomegaly, no mass.?RECTAL EXAM:?not examined.?MUSCULOSKELETAL:?extremities unremarkable, no clubbing, cyanosis or edema.?PERIPHERAL PULSES:?normal.?NEUROLOGIC:?alert and oriented, cranial nerves 2-12 grossly intact, deep tendon reflexes 2+ symmetrical, motor strength normal upper and lower extremities, sensory exam intact.?PSYCH:?alert, oriented.? Assessment: * Assessment: 1.?Macrocytosis - D75.89 (Pr alondra), Her mean cell volume has decreased 102. Her hemoglobin and hematocrit are stable. This makes it more likely we are dealing with the dietary factor that is resolving. There is no evidence for neoplastic process. She will continue to be followed without invasive procedures.?2.?HTN (hypertension) - I10, Her blood pressure today was 138/68. No change in her regimen seems needed. We discussed sodium restriction andd weight loss.?3.?Mixed hyperlipidemia - E78.2, I have recommended regular physical activity combined with weight loss and a healthy diet low in animal fat.?4.?Overweight - E66.3, We have discussed diet and nutrition. We made a plan to lose weight at a rate of one half of a pound per week.?5.?Reactive depression - F32.9, Her depression is very mild at this time. She is completing all of the tasks of daily living without impairment.? Plan: * Treatment: 2.?HTN (hypertension)?LAB: PROFILE, FASTING (COMPREHENSIVE METABOLIC) ?LAB: LDH ?LAB: CBC WITH AUTO DIFF ?LAB: RETIC ?LAB: Lipid Panel ?LAB: Vitamin B12 and Folate 3.?Mixed hyperlipidemia?LAB: PROFILE, FASTING (COMPREHENSIVE METABOLIC) ?LAB: LDH ?LAB: CBC WITH AUTO DIFF ?LAB: RETIC ?LAB: Lipid Panel ?LAB: Vitamin B12 and Folate 4.?Overweight?LAB: PROFILE, FASTING (COMPREHENSIVE METABOLIC) ?LAB: LDH ?LAB: CBC WITH AUTO DIFF ?LAB: RETIC ?LAB: Lipid Panel ?LAB: Vitamin B12 and Folate 5.?Reactive depression?LAB: PROFILE, FASTING (COMPREHENSIVE METABOLIC) ?LAB: LDH ?LAB: CBC WITH AUTO DIFF ?LAB: RETIC ?LAB: Lipid Panel ?LAB: Vitamin B12 and Folate * Procedure Codes:? * Preventive Medicine:? ??Counseling:?Care goal follow-up plan:?Counseling for abnormal BMI given?Yes ?Above Normal BMI Follow-up?Dietary management education, guidance, and counseling, Dietary needs education, Exercise promotion: strength training, Exercise promotion: stretching, Feeding regime, Giving encouragement to exercise, Lifestyle education regarding diet, Nutrition / feeding management, Nutrition therapy, Prescribed activity/exercise education, Prescribed diet education, Prescribed dietary intake, Special diet education, Weight monitoring , Intervention, Order not done: Medical or Other reason not done * Follow Up:?5 M (Reason: OV) * Images: * Sign off status: Completed true * Provider:?Vipul Stokes MD Date:?03/31 Generated for Printi ng/Inez/eTransmitting on:?06/11/2024 01:58 PM EST History and Physical Notes * HPI (History of Present Illness) Category Sub-Category Detail Notes COVID-19 Screening Questions Have you had any new onset fever, chills, cough, congestion, sore throat, shortness of breath, muscle aches?: No Have you been exposed to the virus withi n the last 10 days?: No Have you travelled internationally in [facility] last 10 days?: No Have you been [...]
--- OUTSIDE RECORDS SUMMARY | 2024-06-11 13:58 | XMS_ITS | Patient Health Record ---
Author Organization Vipul Stokes III, MD Address [address] [place] [address] Care Team Providers Care Fire Alarm Repairer Name Role Phone YASMINE POLANCO Primary Care Provider UnavailVipul Louise Unavailable [phone] Allergies Allergen (clinical drug ingredient) Drug/Non Drug Allergy documented on EMR Reaction Allergy Type Onset Date Status Iodinated contrast media (substance) Iodinated Diagnostic Agents Unknown Drug Allergy Active Results Component Value Reference Range Notes Complete Blood Count Auto Di ff Reviewed date:08/24/2023 05:45:43 AM Interpretation: Performing Lab:[facility], [address] [place] [id number] Notes/Report: White Blood Count 5.0 4.8-10.8 X10*3/uL Red Blood Count 3.76 4.20-5.50 X10*6/uL Hemoglobin 13.2 12.0-16.0 g/dl Hematocrit 39.4 37.0-47.0 % Mean Corpuscular Volume 104.8 80.0-98.0 fL Mean Corpuscular Hemoglobin 35.1 27.0-33.0 pg Mean Corpuscular HGB Conc 33.5 31.0-35.0 g/dl Red Cell Distribution Width 13.8 11.0-16.0 % Platelet Count 282 160-400 X10*3/uL Mean Platelet Volume 10.2 9.4-12.3 fL Neutrophils Percent Auto 54.0 45-73 % Imm Gran Pct Auto 0.4 0.0-0.4 % Lymphocytes Percent Auto 31.6 20-40 % Monocytes Percent Auto 11.0 2-11 % Eosinophils Percent Auto 2.2 0-4 % Basophils Percent Auto 0.8 0-2 % NRBC Pct Auto 0.0 0.0-0.2 /100WBC Neutrophils Absolute Auto 2.7 2.0-8.3 x10*3/u L Imm Gran Abs Auto 0.02 0.00-0.03 X10*3/uL Lymphocytes Absolute Auto 1.6 1.2-4.9 X10*3/u L Monocytes Absolute Auto 0.6 0.1-1.2 X10*3/uL Eosinophils Absolute Auto 0.1 0.0-0.4 X10*3/u L Basophils Absolute Auto 0.0 0.0-0.2 X10*3/uL NRBC Abs Auto 0.000 0.0-0.012 X10*3/uL RETIC Reviewed date:08/24/2023 05:45:43 AM Interpretation: Performing Lab:[address] [address] Notes/Report: Reticulocytes Absolute 0.080 0.026-0.095 X10*6/ uL Immature Retic Fraction 15.4 3.0-15.9 % Retic HGB Equivalent 38.1 30.0-35.0 pg Reticulocyte Percent 2.1 0.5-1.8 % Comprehensive [place]. Panel Fa st Reviewed date:08/24/2023 05:45:43 AM Interpretation: Performing Lab:[address] [address] Notes/Report: Sodium 143 135-145 mmol/L Potassium 4.2 3.3-5.1 mmol/L Chloride 105 96-108 mmol/L Carbon Dioxide 29 22-29 mmol/L Anion Gap 13 12-20 Blood Urea Nitrogen 17 9-16 mg/dL Creatinine 0.71 0.5-1.4 mg/dL Estimated Glomerular Filt Rate > 60 NOTE: For -Moldovan individuals, multiply the result by 1.210. Chronic Kidney Disease: Estimated GFR < 60 mL/min/1.73m2 Severe Kidney Disease: Estimated GFR < 15 mL/min/1.73m2 Glucose Fasting 92 60-99 mg/dL Calcium 9.8 8.4-10.2 mg/dL Bilirubin Total 0.5 0.0-1.0 mg/dL Aspartate Amino Transferase 18 5-31 U/L Alanine Aminotransferase 15 0-31 U/L Total Protein 6.4 6.5-8.0 g/dL Albumin Level 4.1 3.5-5.0 g/dL Alkaline Phosphatase 54 39-117 U/L Lactate Dehydrogenase Reviewed date:08/24/2023 05:45:43 AM Interpretation: Performing Lab:[address] [address] Notes/Report: Lactate Dehydrogenase 139 122-220 U/L Lipid Panel Reviewed date:08/24/2023 05:45:43 AM Interpretation: Performing Lab:[address] [address] Notes/Report: Triglycerides 141 <150 mg/dL Desirable Triglyceride: less than 150 mg/dL Borderline High Triglyceride 150-199 mg/dL High Triglyceride: 200-499 mg/dL Very High Triglyceride: greater than or equal to 5OO mg/dL Cholesterol 254 <200 mg/dL Desirable Cholesterol: less than 200 mg/dL Borderline High Cholesterol: 200-239 mg/dL High Cholesterol: greater than 239 mg/dL LDL Cholesterol Calculated 165 <100 mg/dL Desirable LDL: less than 100 mg/dL Near Optimal/Above Optimal LDL: 110-129 mg/dL Borderline High LDL: 130-159 mg/dL High LDL: 160-189 mg/dL Very High LDL: greater than or equal to 190 mg/dL HDL Cholesterol 61 >40 mg/dL Desirable HDL: greater than 40 mg/dL Note: This HDL assay may give artificially low results in patients with liver disease. Vitamin B12 and Folate Reviewed date:08/24/2023 05:45:43 AM Interpretation: Performing Lab:[address] [address] Notes/Report: Vitamin B12 1478 200-900 pg/mL NORMAL 200-900 PG/ML INDETERMINATE 160-199 PG/ML DEFICIENT < 160 PG/ML Folate 18.9 > or = 4.0 ng/mL Reference Values: > or = 4.0 ng/mL < 4.0 ng/mL suggests folate deficiency Methotrexate, aminopterin and folinic acid (leucovorin) are chemotherapeutic agents whose molecular structures are similar to folate; therefore, the Host/Hostess Head folate assay cannot be used for patients using these drugs. Complete Blood Count Auto Di ff Reviewed date:12/28/2023 01:08:43 PM Interpretation: Performing Lab:[facility] [address], [place] [address] Notes/Report: White Blood Count 5.4 4.8-10.8 X10*3/uL Red Blood Count 3.70 4.20-5.50 X10*6/uL Hemoglobin 13.0 12.0-16.0 g/dl Hematocrit 38.5 37.0-47.0 % Mean Corpuscular Volume 104.1 80.0-98.0 fL Mean Corpuscular Hemoglobin 35.1 27.0-33.0 pg Mean Corpuscular HGB Conc 33.8 31.0-35.0 g/dl Red Cell Distribution Width 12.9 11.0-16.0 % Platelet Count 247 160-400 X10*3/uL Mean Platelet Volume 10.6 9.4-12.3 fL Neutrophils Percent Auto 61.1 45-73 % Imm Gran Pct Auto 0.6 0.0-0.4 % Lymphocytes Percent Auto 25.9 20-40 % Monocytes Percent Auto 8.9 2-11 % Eosinophils Percent Auto 2.8 0-4 % Basophils Percent Auto 0.7 0-2 % NRBC Pct Auto 0.0 0.0-0.2 /100WBC Neutrophils Absolute Auto 3.3 2.0-8.3 x10*3/u L Imm Gran Abs Auto 0.03 0.00-0.03 X10*3/uL Lymphocytes Absolute Auto 1.4 1.2-4.9 X10*3/u L Monocytes Absolute Auto 0.5 0.1-1.2 X10*3/uL Eosinophils Absolute Auto 0.2 0.0-0.4 X10*3/u L Basophils Absolute Auto 0.0 0.0-0.2 X10*3/uL NRBC Abs Auto 0.000 0.0-0.012 X10*3/uL Erythrocyte Sedimentation Ra te Reviewed date:12/28/2023 01:08:43 PM Interpretation: Performing Lab:[facility], [address] [place] [address] Notes/Report: Erythrocyte Sedimentation Rate 2 0-20 MM/HR Patients with polycythemia and many hemoglobin abnormalities may have depressed sed rates whereas patients with anemia may have elevated sed rates. RETIC Reviewed date:12/28/2023 01:08:43 PM Interpretation: Performing Lab:[facility], [address] [place] [phone] Notes/Report: Reticulocytes Absolute 0.074 0.026-0.095 X10*6/ uL Immature Retic Fraction 18.4 3.0-15.9 % Retic HGB Equivalent 38.6 30.0-35.0 pg Reticulocyte Percent 2.0 0.5-1.8 % Comprehensive Met. Panel Reviewed date:12/28/2023 01:08:43 PM Interpretation: Performing Lab:[facility], [address] [place] [address] Notes/Report: Sodium 141 135-145 mmol/L Potassium 3.8 3.3-5.1 mmol/L Chloride 105 96-108 mmol/L Carbon Dioxide 31 22-29 mmol/L Anion Gap 9 12-20 Blood Urea Nitrogen 14 9-16 mg/dL Creatinine 0.72 0.5-1.4 mg/dL Estimated Glomerular Filt Rate > 60 NOTE: For -Moldovan individuals, multiply the result by 1.210. Chronic Kidney Disease: Estimated GFR < 60 mL/min/1.73m2 Severe Kidney Disease: Estimated GFR < 15 mL/min/1.73m2 Glucose Random 91 60-115 mg/dL Calcium 9.4 8.4-10.2 mg/dL Bilirubin Total 0.5 0.0-1.0 mg/dL Aspartate Amino Transferase 18 5-31 U/L Alanine Aminotransferase 16 0-31 U/L Total Protein 6.2 6.5-8.0 g/dL Albumin Level 4.1 3.5-5.0 g/dL Alkaline Phosphatase 57 39-117 U/L Reason For Referral No Information Medications Medication SIG (Take, Route, Frequency, Duration) Notes Start Date End Date Status Lumigan 0.01 % Ophthalmic Acti ve Rhopressa 0.02 % Ophthalmic Ac tive Citalopram Hydrobromide 20 MG Oral Active Raloxifene HCl 60 MG Oral Active Atorvastatin Calcium 10 MG TAKE 1 TABLET BY MOUTH EVERY DAY Oral Active hydroCHLOROthiazide 12.5 MG Oral Active Super B Complex - as directed Orally Active Calcium 600 MG 1 tablet Orally Once a day Active Bimatoprost 0.03 % 1 drop into affected eye in the evening Ophthalmic Once a day Active Timolol Maleate 0.5 % PLACE 1 DROP INTO EACH EYE EVERY MORNING. Ophthalmic Active Social History Tobacco Use: Social History Observation Description Date Details (start date - stop date) Never Smoker NA - NA Sex Assigned At : Social History Observation Description Sex Assigned At Female Tobacco Use/Smoking Question Answer Notes Patient is a nonsmoker Additional Findings: Tobacco Non-User Aggressive non-smoker Alcohol Screen Question Answer Notes Did you have a drink containing alcohol in the p ast year? No Points 0 Interpretation Negative Problems Problem Type SNOMED Code ICD Code Onset Dates Problem Status W/U Status Risk Notes Problem 804496084 Overweight (E66.3) Active confirmed We have discussed diet and nutrition. We made a plan to lose weight at a rate of one half of a pound per week. Problem Anxiety (25234679) Anxiety (F41.9) Active confirmed She had m ild to moderate anxiety today but is coping. She is conducting all of the activities of daily life without impairment. Problem Mixed hyperlipidemia (783189800) Mixed hyperlipidemia (E78.2) Active confirmed I have recommended regular physical activity combined with weight loss and a healthy diet low in animal fat. Problem Hypertension (61438759) HTN (hypertension) (I10) Active confirmed Her blood pressure today was elevated.. No change in her regimen seems needed. We discussed sodium restriction and weight loss. 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 Problem Macrocytosis (80400309) Macrocytosis (D75.89) Active confirmed Her mean cell volume Is unchanged Her hemoglobin and hematocrit are stable. This makes it more likely we are dealing with the dietary factor that is resolving. There is no evidence for neoplastic process. She will continue to be followed without invasive procedures.Th e reticulocyte remains slightly elevated. . LDH is normal. Problem 46052928 Reactive depression (F32.9) Active confirmed Her depression is very mild at this time. She is completing all of the tasks of daily living without impairment. Problem History of polyp of colon (187963469) H/O adenomatous polyp of colon (Z86.010) Active confirmed Problem 840543372 Osteopenia, unspecified location (M85.80) Active confirmed Current therapy was continued Problem 748163370 Adenomatous polyp (D36.9) Active confirmed Problem 37664774 Seborrheic dermatitis (L21.9) Active confirmed Vital Signs Heart Rate 59 /min 12/29/2023 Temperature 97.4 degrees Fahrenheit 12/29/2023 Blood pressure diastolic 85 mm Hg 12/29/2023 Height 64 in 12/29/2023 Blood pressure systolic 146 mm Hg 12/29/2023 Weight 168 lbs 12/29/2023 BMI 28.83 kg/m2 12/29/2023 Encounters Encounter Location Date Provider Diagnosis Vipul Stokes III, MD [address] [place] [address] [address] [place], [place] [address] 08/29/2023 Vipul Stokes Macrocytosis D75.89 ; HTN (hypertension) I10 ; Mixed hyperlipidemia E78.2 ; Overweight E66.3 ; Osteopenia, unspecified location M85.80 and Reactive depression F32.9 Vipul Stokes III, MD [address] [place] [address] [address] [place], [place] [address] 12/29/2023 Vipul Stokes Macrocytosis D75.89 ; HTN (hypertension) I10 and Mixed hyperlipidemia E78.2 Assessments Encounter Date Diagnosis (ICD Code) Assessment Notes Treat ment Notes Treatment Clinical Notes 08/29/2023 HTN (hypertension) (ICD-10 - I10) Her blood pressure today was 1147/85.. No change in her regimen seems needed. We discussed sodium restriction and weight loss. She was referred back to primary care 08/29/2023 Macrocytosis (ICD-10 - D75.89) Her mean cell volume has increased.. Her hemoglobin and hematocrit are stable. This makes it more likely we are dealing with the dietary factor that is resolving. There is no evidence for neoplastic process. She will continue to be followed without invasive procedures.The reticulocyte remains slightly elevated. . LDH is normal. 12/29/2023 HTN (hypertension) (ICD-10 - I10) Her blood pressure today was elevated.. No change in her regimen seems needed. We discussed sodium restriction and weight loss. She was referred back to primary care 12/29/2023 Macrocytosis (ICD-10 - D75.89) Her mean cell volume Is unchanged Her hemoglobin and hematocrit are stable. This makes it more likely we are dealing with the dietary factor that is resolving. There is no evidence for neoplastic process. She will continue to be followed without invasive procedures.The reticulocyte remains slightly elevated. . LDH is normal. 08/29/2023 Mixed hyperlipidemia (ICD-10 - E78.2) I have recommended regular physical activity combined with weight loss and a healthy diet low in animal fat. 12/29/2023 Mixed hyperlipidemia (ICD-10 - E78.2) I have [...] daily living without impairment. Plan Of Treatment Pending Test Test Name Order Date PROFILE, FASTING (COMPREHENSIVE METABOLI C) 04/26/2023 PROFILE, RANDOM (COMPREHENSIVE METABOLIC ) 12/29/2023 PROFILE, RANDOM (COMPREHENSIVE METABOLIC ) 08/29/2023 LDH 04/26/2023 FERRITIN 12/29/2023 VITAMIN B12 AND FOLATE 12/29/2023 CBC w DIFF 12/29/2023 SED RATE (ESR) 08/29/2023 RETICULOCYTE COUNT,CORRECTED 08/29/2023 CBC WITH AUTO DIFF 08/29/2023 CBC WITH AUTO DIFF 04/26/2023 RETIC 04/26/2023 Lipid Panel 04/26/2023 Vitamin B12 and Folate 04/26/2023 Next Appt Details Provider Name:Vipul Stokes, 01/03/2025 10:00:00 AM, [address] [place] [address] [address], [place], [address], Insurance Providers Payer Name Payer Address Payer Phone Subscriber Number Group Number Insured Name Patient Relationship to Insured Coverage Start Date Coverage End Date [employer] [id number] [place]TO[place] [phone] [id number] JOANN SAWANT Self - patient is the insured Medical (General) History Medical History History ICD Code Macrocytosis D75.89 HTN (hypertension) I10 Mixed hyperlipidemia E78.2 Anxiety F41.9 Glaucoma H40.9 H/O adenomatous polyp of colon Z86.010 Atypical ductal hyperplasia of the breas t 2003, by biopsy Epidermal cyst over sternum, 1994, excis ed Osteopenia Seborrheic dermatitis Papilledema OD Depression/OCD Possible allergy to radiographic contras t Postmenopausal Overweight Surgical History Surgery Date(Month/Year) Colonoscopy, every 5 years, [facility] 3 Breast biopsies-atypical lobular hyper plasia 2002, 2003 Pilonidal cyst, age 16 Cyst removed from mid sternum 1994
--- OUTSIDE RECORDS SUMMARY | 2024-06-11 13:58 | XMS_ITS ---
Author Organization Vipul Stokes III, MD Address [address] [place] [address] Care Team Providers Care Squaring Shear Operator Name Role Phone YASMINE PUTNAM Primary Care Provider Unavailab Vipul Thompson Unavailable [phone] Allergies Allergen (clinical drug ingredient) Drug/Non Drug [...] Date Provider Diagnosis Vipul Stokes III, MD [address] [place] [address] [address] [place], [place] [address] 08/29/2023 Vipul Stokes Macrocytosis D75.89 ; HTN [...] OV Provider Name:Vipul Stokes, 01/03/2025 10:00:00 AM, [address] [place] [address] DR, [place] [address], [place], [address], Progress Notes * MAGALY SAWANTOB: 6 (67 yo F)Acc No.[id number]:08/29/2023 Progress Notes Patient:?JOANN SAWANT Provider:?Vipul Stokes MD :1955???Age:67 Y???Sex:Female D ate:08/29/2023 Address:[address] [place], [place] [id number] Pcp:YASMINE PUTNAM Subjective: * Chief Complaints: * ???MacrocytosisAtypical duct al hyperplasiaHypertensionHyperlipidemia * HPI: ???COVID-19 Screening:? She returns for ongoing evaluation of her macrocytosis. Blood work was reviewed with her in detail today. It was forwarded to her primary care physician, Yasmine Putnam MD [address] [place] [address] fax number [phone]. . She has been healthy and well since her last visit. ?Questions?Have you experienced fever, chills, cough, sore throat, shortness of breath, difficulty breathing, muscle aches, loss of taste or smell??No ?Have you been exposed to the virus within the last 10 days??No ?Have you travelled internationally in the last 10 days??No ?Have you been exposed to COVID-19 in the past??No * ROS:?General/Constitutional:?pain?only normal aches and pains.?Chills?denies.?Fatigue?admits.?Fever?denies.?ENT:?Decreased hearing?denies.?Respiratory:?Cough?denies.?Cardiovascular:?Chest pain with exertion?denies.?Dyspnea on exertion?denies.?Shortness of breath?denies.?Gastrointestinal:?Constipation?occasional.?Decreased appetite?denies.?Diarrhea?denies.?Heartburn?denies.?Nausea?denies.?Rectal bleeding?denies.?Vomiting?denies.?Hematology:?bruising?denies.?petechiae?denies.?Swollen glands?none have been noted.?Genitourinary:?Frequent urination?at night.?Musculoskeletal:?Muscle aches?denies.?Painful joints?denies.?Sciatica?denies.?Weakness?denies.?Skin:?Itching?denies.?Rash?denies.?Skin lesion(s)?denies.?Neurologic:?Difficulty speaking?denies.?Dizziness?denies.?Headache?denies.?Low back pain?denies.?Psychiatric:?Depressed mood?denies.? * Medical History:? * Surgical History:?Cyst remov ed from mid sternum 1995Pilonidal cyst, age 16 3 Breast biopsies-atypical lobular hyperplasia 2002, 2003Colonoscopy, every 5 years, tubular adenoma * Hospitalization/Major Diagno stic Procedure:?Denies Past Hospitalization * Family History:?Father: dece ased, Coronary artery disease, myocardial infarction, diabetes mellitus, diagnosed with DM, CVD.?Mother: , asthma, pneumonia, hypothyroidism, coronary artery disease, diagnosed with CVD.?Siblings: alive, Siblin- Thyroid problem-Sister, Siblin- Healthy-Sister,Siblin- Healthy-Sister,Siblin7-Qstdlxz-Tykrgi,.?1 brother(s) , 5 sister(s) . .? Both [...] no children. 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 She has no history of exposures. She was born in [place], [place] and lives in [place]. She has no history of cancer, chemotherapy or radiation. She has no restorationist objection to blood transfusion. She has never had a transfusion. She has no history. * Medications:?TakingCalcium 6 00 MG Tablet 1 tablet Orally Once a [...] tic Agentsno[Allergies Verified] Objective: * Vitals:?Ht: 64, Wt:166, BMI: 28.49, BP:147/85, HR:64, Temp:97.9, Wt-k.3 Bilirubin is normal. * ???Past Orders: Lab:Lactate Dehydrogenase * Order Date 08/22/2023 04/15/2023 Lactate Dehydrogenase 139 (Ref Range: 122-220 U/L) 160 (Ref Range: 122-220 U/L) ???Lab:Comprehensive [place]. Panel Fast (Order Date - 08/22/2023) (Collection Date - 08/22/2023)?ValueReference Range?Wkbdwc999382-166 - mmol/L ?Bilirubin Total0.50.0-1.0 - mg/dL?Aspartate Amino Ifqmmyporll630- 31 - U/L?Alanine Ghfprupglayfpfis645-38 - U/L?Total Protein6.4L 6.5-8.0 - g/dL?Albumin Level4.13.5-5.0 - g/dL?Alkaline Phosphatase 5439-117 - U/L?Potassium4.23.3-5.1 - mmol/L?Gbnrbytg72387-203 - mmol/L?Carbon Btzuzsi0380-87 - mmol/L?Anion Tdk7935-64 - ?Blood Urea Cwzzbzhr83E0-97 - mg/dL?Creatinine0.710.5-1.4 - mg/dL ?Estimated Glomerular Filt Rate> 60-?Glucose Sjjbwml7265-49 - mg/dL?Calcium9.88.4-10.2 - mg/dL * Lab:RETIC * Order Date 08/22/2023 04/15/2023 12/14/2022 Reticulocytes Absolute 0.080 (Ref Range: 0.026-0.095 X10*6/uL) 0.090 (Ref Range: 0.026-0.095 X10*6/uL) 0.083 (Ref Range: 0.026-0.095 X10*6/uL) Immature Retic Fraction 15.4 (Ref Range: 3.0-15.9 %) 15.4 (Ref Range: 3.0-15.9 %) 14.7 (Ref Range: 3.0-15.9 %) Retic HGB Equivalent 38.1?H (Ref Range: 30.0-35.0 pg) 40.8?H (Ref Range: 30.0-35.0 pg) 39.8?H (Ref Range: 30.0-35.0 pg) Reticulocyte Percent 2.1?H (Ref Range: 0.5-1.8 %) 2.3?H (Ref Range: 0.5-1.8 %) 2.2?H (Ref Range: 0.5-1.8 %) * Lab:Complete Blood Count Aut o Diff * Order Date 08/22/2023 04/15/2023 12/14/2022 White Blood Count 5.0 (Ref Range: 4.8-10.8 X10*3/uL) 6.0 (Ref Range: 4.8-10.8 X10*3/uL) 6.1 (Ref Range: 4.8-10.8 X10*3/uL) Red Blood Count 3.76?L (Ref Range: 4.20-5.50 X10*6/uL) 3.86?L (Ref Range: 4.20-5.50 X10*6/uL) 3.80?L (Ref Range: 4.20-5.50 X10*6/uL) Hemoglobin 13.2 (Ref Range: 12.0-16.0 g/dl) 13.3 (Ref Range: 12.0-16.0 g/dl) 13.0 (Ref Range: 12.0-16.0 g/dl) Hematocrit 39.4 (Ref Range: 37.0-47.0 %) 39.4 (Ref Range: 37.0-47.0 %) 39.8 (Ref Range: 37.0-47.0 %) Mean Corpuscular Volume 104.8?H (Ref Range: 80.0-98.0 fL) 102.1?H (Ref Range: 80.0-98.0 fL) 104.7?H (Ref Range: 80.0-98.0 fL) Mean Corpuscular Hemoglobin 35.1?H (Ref Range: 27.0-33.0 pg) 34.5?H (Ref Range: 27.0-33.0 pg) 34.2?H (Ref Range: 27.0-33.0 pg) Mean Corpuscular HGB [...] Pct Auto 0.4 (Ref Range: 0.0-0.4 %) 0.8?H (Ref Range: 0.0-0.4 %) 0.7?H (Ref Range: 0.0-0.4 %) Lymphocytes Percent Auto [...] Abs Auto 0.02 (Ref Range: 0.00-0.03 X10*3/uL) 0.05?H (Ref Range: 0.00-0.03 X10*3/uL) 0.04?H (Ref Range: 0.00-0.03 X10*3/uL) Lymphocytes Absolute Auto [...] * Order Date 08/22/2023 06/29/2022 Vitamin B12 1478?H (Ref Range: 200-900 pg/mL) 861 (Ref Range: 200-900 pg/mL) Folate 18.9 (Ref Range: > or = 4.0 ng/mL) 19.5 (Ref Range: > or = 4.0 ng/mL) ???Lab:Lipid Panel (Order Date - 08/22/2023) (Collection Date - 08/22/2023) ?ValueReference Range?Rwibccsojdikc091<150 - mg/dL ?Abgsmrinely045Y<200 - mg/dL?LDL Cholesterol Qzvucjseuw644B<100 - mg/dL?HDL Vgaecvdeyrw23>40 - mg/dL * Examination: ???General Examination: ?GENERAL APPEARANCE:?pleasant, well [...] Assessment: * Assessment: 1.?Macrocytosis - D75.89 (Pr imary), Her mean cell volume has increased.. Her hemoglobin and hematocrit are stable. This makes it more likely we are dealing with the dietary factor that is resolving. There is no evidence for neoplastic process. She will continue to be followed without invasive procedures.The reticulocyte remains slightly elevated. . LDH is normal.?2.?HTN (hypertension) - I10, Her blood pressure today was 1147/85.. No change in her regimen seems needed. We discussed sodium restriction and weight loss. She was referred back to primary care?3.?Mixed hyperlipidemia - E78.2, I have recommended regular physical activity combined with weight loss and a healthy diet low in animal fat.?4.?Overweight - E66.3, We have discussed diet and nutrition. We made a plan to lose weight at a rate of one half of a pound per week.?5.?Osteopenia, unspecified location - M85.80, Current therapy was continued?6.?Reactive depression - F32.9, Her depression is very mild at this time. She is completing all of the tasks of daily living without impairment.? Plan: * Treatment: 2.?Others? Continue Bimatoprost Solution, 0.03 %, 1 drop into affected eye in the evening, Ophthalmic, Once a day.?? * Procedure Codes:? * Preventive Medicine:? ??Counseling:?Care goal follow-up plan:?Counseling for abnormal BMI given?Yes ?Above Normal BMI Follow-up?Dietary management education, guidance, and counseling * Follow Up:?4 Months (Reason: OV) * Images: * Sign off status: Completed true * Provider:?Vipul Stokes MD Date:?05/2023 Generated for Rocky bran/Inez/Kathyitting on:?06/11/2024 01:58 PM EST History and Physical [...]
== END 2024-06-11 11:44 | disposition home or self-care (01) ==
LOC: HO.LAB 11:43
PROVIDERS: PCP Family Medicine; Visit Provider Family Medicine
DX: I10 Essential (primary) hypertension (principal)
CPT/HCPCS: 36415; 80048; 80061; 84450; 84460; 85027

== ENCOUNTER 2024-12-27 11:03 | Outpatient (REF) | payer OTHER, SELFPAY ==
--- OUTSIDE RECORDS SUMMARY | 2023-08-29 07:30 | XMS_ITS ---
Author Organization Vipul Stokes III, MD Address [address] [place] [address] Care Team Providers Care Mixologist Name Role Phone YASMINE PUTNAM Primary Care Provider Unavailab Vipul Thompson Unavailable [phone] Allergies Allergen (clinical drug ingredient) Drug/Non Drug Allergy documented on EMR Reaction Allergy Type Onset Date Status Iodinated contrast media (substance) Iodinated Diagnostic Agents Unknown Drug Allergy Active REASON FOR VISIT Macrocytosis, Atypical ductal hyperplasia, Hypertension, Hyperlipidemia Medications Medication SIG (Take, Route, Frequency, Duration) Notes Start Date End Date Status Timolol Maleate 0.5 % PLACE 1 DROP INTO EACH EYE EVERY MORNING. Ophthalmic Active Bimatoprost 0.03 % 1 drop into affected eye in the evening Ophthalmic Once a day Active Lumigan 0.01 % Ophthalmic Acti ve Citalopram Hydrobromide 20 MG Oral Active Rhopressa 0.02 % Ophthalmic Ac tive Calcium 600 MG 1 tablet Orally Once a day Active Super B Complex - as directed Orally Active hydroCHLOROthiazide 12.5 MG Oral Active Atorvastatin Calcium 10 MG TAKE 1 TABLET BY MOUTH EVERY DAY Oral Active Raloxifene HCl 60 MG Oral Active Social History Tobacco Use: Social History Observation Description Date Details (start date - stop date) Never Smoker NA - NA Sex Assigned At : Social History Observation Description Sex Assigned At Female Tobacco Use/Smoking Question Answer Notes Patient is a nonsmoker Additional Findings: Tobacco Non-User Aggressive non-smoker Vital Signs Temperature 97.9 degrees Fahrenheit 08/29/19 24 Blood pressure systolic 147 mm Hg 08/29/19 24 Blood pressure diastolic 85 mm Hg 024 Heart Rate 64 /min 08/29/2023 Height 64 in 08/29/2023 Weight 166 lbs 08/29/2023 BMI 28.49 kg/m2 08/29/2023 Bilirubin is normal Encounters Encounter Location Date Provider Diagnosis Vipul Stokes III, MD [address] [place] [address] DR SHEA SUDHA, [place] [id number] 08/29/2023 Vipul Stokes Macrocytosis D75.89 ; HTN (hypertension) I10 ; Mixed hyperlipidemia E78.2 ; Overweight E66.3 ; Osteopenia, unspecified location M85.80 and Reactive depression F32.9 Assessments Encounter Date Diagnosis (ICD Code) Assessment Notes Treat ment Notes Treatment Clinical Notes 08/29/2023 Macrocytosis (ICD-10 - D75.89) Her mean cell volume has increased.. Her hemoglobin and hematocrit are stable. This makes it more likely we are dealing with the dietary factor that is resolving. There is no evidence for neoplastic process. She will continue to be followed without invasive procedures.The reticulocyte remains slightly elevated. . LDH is normal. 08/29/2023 HTN (hypertension) (ICD-10 - I10) Her blood pressure today was 1147/85.. No change in her regimen seems needed. We discussed sodium restriction and weight loss. She was referred back to primary care 08/29/2023 Mixed hyperlipidemia (ICD-10 - E78.2) I have recommended regular physical activity combined with weight loss and a healthy diet low in animal fat. 08/29/2023 Overweight (ICD-10 - E66.3) We have discussed diet and nutrition. We made a plan to lose weight at a rate of one half of a pound per week. 08/29/2023 Osteopenia, unspecified location (ICD-10 - M85.80) Current therapy was continued 08/29/2023 Reactive depression (ICD-10 - F32.9) Her depression is very mild at this time. She is completing all of the tasks of daily living without impairment. Plan Of Treatment Medication Medication Name Sig Start Date Stop Date Notes Timolol Maleate 0.5 % PLACE 1 DROP INTO EACH EYE EVERY MORNING. Ophthalmic Bimatoprost 0.03 % 1 drop into affected eye in the evening Ophthalmic Once a day Lumigan 0.01 % Ophthalmic Citalopram Hydrobromide 20 MG Oral Rhopressa 0.02 % Ophthalmic Calcium 600 MG 1 tablet Orally Once a day Super B Complex - as directed Orally hydroCHLOROthiazide 12.5 MG Oral Atorvastatin Calcium 10 MG TAKE 1 TABLET BY MOUTH EVERY DAY Oral Raloxifene HCl 60 MG Oral Pending Test Test Name Order Date PROFILE, RANDOM (COMPREHENSIVE METABOLIC ) 08/29/2023 SED RATE (ESR) 08/29/2023 RETICULOCYTE COUNT,CORRECTED 08/29/2023 CBC WITH AUTO DIFF 08/29/2023 Next Appt Details Follow Up: 4 Months, Reason: OV Provider Name:Vipul Stokes, 01/03/2025 10:00:00 AM, [address] [place] [address], [place] [address], [place], [address], Progress Notes * MAGALY SAWANTOB: 6 (67 yo F)Acc No.[id number]:08/29/2023 Progress Notes Patient: JOANN BLAKE Provider: Meche Stokes MD :1955 A ge:67 Y S ex:Female Date:08/29/2023 Address:[address] [place] [address] [id number] Pcp:YASMINE PUTNAM Subjective: * Chief Complaints: * M acrocytosisAtypical ductal hyperplasiaHypertensionHyperlipidemia * HPI: C OVID-19 Screening: She returns for ongoing evaluation of her macrocytosis. Blood work was reviewed with her in detail today. It was forwarded to her primary care physician, Yasmine Putnam MD [address] [place] [address] fax number [phone]. . She has been healthy and well since her last visit. Questions H ave you experienced fever, chills, cough, sore throat, shortness of breath, difficulty breathing, muscle aches, loss of taste or smell? N o H ave you been exposed to the virus within the last 10 days? N o H ave you travelled internationally in the last 10 days? N o H ave you been exposed to COVID-19 in the past? N o * ROS: G eneral/Constitutional: pain o nly normal aches and pains. C hills d enies.?Fatigue a dmits. F ever d enies. E NT: Decreased hearing d enies. R espiratory: Cough d enies. C ardiovascular: Chest pain with exertion d enies. D yspnea on exertion?denies. S hortness of breath d enies. G astrointestinal: Constipation o ccasional. D ecreased appetite d enies. D iarrhea d enies. H eartburn d enies. N ausea d enies. R ectal bleeding d enies. V omiting d enies. H ematology: bruising d enies. p etechiae d enies. S wollen glands n one have been noted. G enitourinary: Frequent urination a t night. M usculoskeletal: Muscle aches d enies. P ainful joints d enies. S ciatica d enies. W eakness d enies. S kin: Itching d enies. R jameson d enies. S kin lesion(s)?denies. N eurologic: Difficulty speaking d enies. D izziness d enies.?Headache d enies. L ow back pain d enies. P sychiatric: Depressed mood d enies. * Medical History: * Surgical History: C yst removed from mid sternum 1994Pilonidal cyst, age 16 3 Breast biopsies- atypical lobular hyperplasia 2002, 2003Colonoscopy, every 5 years, tubular adenoma * Hospitalization/Major Diagno stic Procedure: D enies Past Hospitalization * Family History: F ather: , Coronary artery disease, myocardial infarction, diabetes mellitus, diagnosed with DM, CVD. M other: , asthma, pneumonia, hypothyroidism, coronary artery disease, diagnosed with CVD. S iblings: alive, Siblin- Thyroid problem-Sister, Siblin- Healthy-Sister,Siblin- Healthy-Sister,Siblin5-Exudmio-Xkasmh,. 1 brother(s) , 5 sister(s) . . Both parents have a history of coronary artery disease. Her mother had a history of hypothyroidism and asthma and aspiration pneumonia. Her only brother young of cystic fibrosis. 4 of her sisters survive and are healthy and well, one of whom has thyroid disease. One sister in an automobile accident. There is no family history of cancer. She is not aware of any family history of mental illness or substance use disorder or addiction. * Social History: T obacco Use: T obacco Use/Smoking P atient is a n onsmoker A dditional Findings: Tobacco Non-User A ggressive non-smoker S he has been for 44 years. He is disabled with renal cancer and coronary artery disease and has been on dialysis. She has no children. 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 She has no history of exposures. She was born in [place], [place] and lives in [place]. She has no history of cancer, chemotherapy or radiation. She has no confucianist objection to blood transfusion. She has never had a transfusion. She has no history. * Medications: T akingCalcium 600 MG Tablet 1 tablet Orally Once a daySuper B Complex - Tablet as directed Orally hydroCHLOROthiazide 12.5 MG Tablet Oral Atorvastatin Calcium 10 MG Tablet TAKE 1 TABLET BY MOUTH EVERY DAY Oral Raloxifene HCl 60 MG Tablet Oral Citalopram Hydrobromide 20 MG Tablet Oral Rhopressa 0.02 % Solution Ophthalmic Lumigan 0.01 % Solution Ophthalmic Timolol Maleate 0.5 % Solution PLACE 1 DROP INTO EACH EYE EVERY MORNING. Ophthalmic Bimatoprost 0.03 % Solution 1 drop into affected eye in the evening Ophthalmic Once a dayMedication List reviewed and reconciled with the patientTaking Calcium 600 MG Tablet 1 tablet Orally Once a dayTaking Super B Complex - Tablet as directed Orally Taking hydroCHLOROthiazide 12.5 MG Tablet Oral Taking Atorvastatin Calcium 10 MG Tablet TAKE 1 TABLET BY MOUTH EVERY DAY Oral Taking Raloxifene HCl 60 MG Tablet Oral Taking Citalopram Hydrobromide 20 MG Tablet Oral Taking Rhopressa 0.02 % Solution Ophthalmic Taking Lumigan 0.01 % Solution Ophthalmic Taking Timolol Maleate 0.5 % Solution PLACE 1 DROP INTO EACH EYE EVERY MORNING. Ophthalmic Taking Bimatoprost 0.03 % Solution 1 drop into affected eye in the evening Ophthalmic Once a dayMedication List reviewed and reconciled with the patient * Allergies: I odinated Diagnostic Agentsno[Allergies Verified] Objective: * Vitals: H t: 64, Wt:166, BMI:28.49, BP:147/85, HR:64, Temp:97.9, Wt-k.3 Bilirubin is normal. * P ast Orders: Lab:Lactate Dehydrogenase * Order Date 08/22/2023 04/15/2023 Lactate Dehydrogenase 139 (Ref Range: 122-220 U/L) 160 (Ref Range: 122-220 U/L) ???Lab:Comprehensive [place]. Panel Fast (Order Date - 08/22/2023) (Collection Date - 08/22/2023)?ValueReference Range?[id number] - mmol/L ?Bilirubin Total0.50.0-1.0 - mg/dL?Aspartate Amino Maxgypmiedx065- 31 - U/L?Alanine Mclwtsiaidhkrqql109-75 - U/L?Total Protein6.4L 6.5-8.0 - g/dL?Albumin Level4.13.5-5.0 - g/dL?Alkaline Phosphatase 5439-117 - U/L?Potassium4.23.3-5.1 - mmol/L?Ousbghnd70497-316 - mmol/L?Carbon Wdnbvzy5499-36 - mmol/L?Anion Kri4486-59 - ?Blood Urea Rmjrmjei96R0-92 - mg/dL?Creatinine0.710.5-1.4 - mg/dL ?Estimated Glomerular Filt Rate> 60-?Glucose Mmhuyho8591-99 - mg/dL?Calcium9.88.4-10.2 - mg/dL * Lab:RETIC * Order Date 08/22/2023 04/15/2023 12/14/2022 Reticulocytes Absolute 0.080 (Ref Range: 0.026-0.095 X10*6/uL) 0.090 (Ref Range: 0.026-0.095 X10*6/uL) 0.083 (Ref Range: 0.026-0.095 X10*6/uL) Immature Retic Fraction 15.4 (Ref Range: 3.0-15.9 %) 15.4 (Ref Range: 3.0-15.9 %) 14.7 (Ref Range: 3.0-15.9 %) Retic HGB Equivalent 38.1 H (Ref Range: 30.0-35.0 pg) 40.8 H (Ref Range: 30.0-35.0 pg) 39.8 H (Ref Range: 30.0-35.0 pg) Reticulocyte Percent 2.1 H (Ref Range: 0.5-1.8 %) 2.3 H (Ref Range: 0.5-1.8 %) 2.2 H (Ref Range: 0.5-1.8 %) * Lab:Complete Blood Count Aut o Diff * Order Date 08/22/2023 04/15/2023 12/14/2022 White Blood Count 5.0 (Ref Range: 4.8-10.8 X10*3/uL) 6.0 (Ref Range: 4.8-10.8 X10*3/uL) 6.1 (Ref Range: 4.8-10.8 X10*3/uL) Red Blood Count 3.76 L (Ref Range: 4.20-5.50 X10*6/uL) 3.86 L (Ref Range: 4.20-5.50 X10*6/uL) 3.80 L (Ref Range: 4.20-5.50 X10*6/uL) Hemoglobin 13.2 (Ref Range: 12.0-16.0 g/dl) 13.3 (Ref Range: 12.0-16.0 g/dl) 13.0 (Ref Range: 12.0-16.0 g/dl) Hematocrit 39.4 (Ref Range: 37.0-47.0 %) 39.4 (Ref Range: 37.0-47.0 %) 39.8 (Ref Range: 37.0-47.0 %) Mean Corpuscular Volume 104.8 H (Ref Range: 80.0-98.0 fL) 102.1 H (Ref Range: 80.0-98.0 fL) 104.7 H (Ref Range: 80.0-98.0 fL) Mean Corpuscular Hemoglobin 35.1 H (Ref Range: 27.0-33.0 pg) 34.5 H (Ref Range: 27.0-33.0 pg) 34.2 H (Ref Range: 27.0-33.0 pg) Mean Corpuscular HGB Conc 33.5 (Ref Range: 31.0-35.0 g/dl) 33.8 (Ref Range: 31.0-35.0 g/dl) 32.7 (Ref Range: 31.0-35.0 g/dl) Red Cell Distribution Width 13.8 (Ref Range: 11.0-16.0 %) 13.2 (Ref Range: 11.0-16.0 %) 13.5 (Ref Range: 11.0-16.0 %) Platelet Count 282 (Ref Range: 160-400 X10*3/uL) 257 (Ref Range: 160-400 X10*3/uL) 286 (Ref Range: 160-400 X10*3/uL) Mean Platelet Volume 10.2 (Ref Range: 9.4-12.3 fL) 9.8 (Ref Range: 9.4-12.3 fL) 10.6 (Ref Range: 9.4-12.3 fL) Neutrophils Percent Auto 54.0 (Ref Range: 45-73 %) 64.6 (Ref Range: 45-73 %) 57.1 (Ref Range: 45-73 %) Imm Gran Pct Auto 0.4 (Ref Range: 0.0-0.4 %) 0.8 H (Ref Range: 0.0-0.4 %) 0.7 H (Ref Range: 0.0-0.4 %) Lymphocytes Percent Auto 31.6 (Ref Range: 20-40 %) 22.8 (Ref Range: 20-40 %) 29.4 (Ref Range: 20-40 %) Monocytes Percent Auto 11.0 (Ref Range: 2-11 %) 8.2 (Ref Range: 2-11 %) 8.6 (Ref Range: 2-11 %) Eosinophils Percent Auto 2.2 (Ref Range: 0-4 %) 2.9 (Ref Range: 0-4 %) 3.0 (Ref Range: 0-4 %) Basophils Percent Auto 0.8 (Ref Range: 0-2 %) 0.7 (Ref Range: 0-2 %) 1.2 (Ref Range: 0-2 %) NRBC Pct Auto 0.0 (Ref Range: 0.0-0.2 /100WBC) 0.0 (Ref Range: 0.0-0.2 /100WBC) 0.0 (Ref Range: 0.0-0.2 /100WBC) Neutrophils Absolute Auto 2.7 (Ref Range: 2.0-8.3 x10*3/uL) 3.9 (Ref Range: 2.0-8.3 x10*3/uL) 3.5 (Ref Range: 2.0-8.3 x10*3/uL) Imm Gran Abs Auto 0.02 (Ref Range: 0.00-0.03 X10*3/uL) 0.05 H (Ref Range: 0.00-0.03 X10*3/uL) 0.04 H (Ref Range: 0.00-0.03 X10*3/uL) Lymphocytes Absolute Auto 1.6 (Ref Range: 1.2-4.9 X10*3/uL) 1.4 (Ref Range: 1.2-4.9 X10*3/uL) 1.8 (Ref Range: 1.2-4.9 X10*3/uL) Monocytes Absolute Auto 0.6 (Ref Range: 0.1-1.2 X10*3/uL) 0.5 (Ref Range: 0.1-1.2 X10*3/uL) 0.5 (Ref Range: 0.1-1.2 X10*3/uL) Eosinophils Absolute Auto 0.1 (Ref Range: 0.0-0.4 X10*3/uL) 0.2 (Ref Range: 0.0-0.4 X10*3/uL) 0.2 (Ref Range: 0.0-0.4 X10*3/uL) Basophils Absolute Auto 0.0 (Ref Range: 0.0-0.2 X10*3/uL) 0.0 (Ref Range: 0.0-0.2 X10*3/uL) 0.1 (Ref Range: 0.0-0.2 X10*3/uL) NRBC Abs Auto 0.000 (Ref Range: 0.0-0.012 X10*3/uL) 0.000 (Ref Range: 0.0-0.012 X10*3/uL) 0.000 (Ref Range: 0.0-0.012 X10*3/uL) * Lab:Vitamin B12 and Folate * Order Date 08/22/2023 06/29/2022 Vitamin B12 1478 H (Ref Range: 200-900 pg/mL) 861 (Ref Range: 200-900 pg/mL) Folate 18.9 (Ref Range: > or = 4.0 ng/mL) 19.5 (Ref Range: > or = 4.0 ng/mL) ???Lab:Lipid Panel (Order Date - 08/22/2023) (Collection Date - 08/22/2023) ?ValueReference Range?Qdlvbqukenumt571<150 - mg/dL ?Myyrrlnhanf233C<200 - mg/dL?LDL Cholesterol Fcozqcawnx177B<100 - mg/dL?HDL Xnnjvxcyemk88>40 - mg/dL * Examination: G eneral Examination: GENERAL APPEARANCE: p leasant, well nourished, well developed, in no acute distress, calm and relaxed , overweight , woman. HEAD: a traumatic, normocephalic. EYES: e marisol, perrla, anicteric, conjugate. EARS: n ormal. NOSE: s eptum intact. ORAL CAVITY: n ormal, unremarkable. NECK/THYROID: n o jugular venous distention, no carotid bruit, thyroid normal. LYMPH NODES: n o enlarged lymph nodes,spleen normal. SKIN: n o suspicious lesions, anicteric. HEART: n o clicks, gallops, murmurs, or rubs, regular rhythm, S1, S2 normal, no s3, or vascular bruits. LUNGS: c lear to auscultation . BREASTS: n ot examined. ABDOMEN: b owel sounds normal, no ascites, no organomegaly, no mass. RECTAL EXAM: n ot examined. MUSCULOSKELETAL: e xtremities unremarkable, no clubbing, cyanosis or edema. PERIPHERAL PULSES: n ormal. NEUROLOGIC: a lert and oriented, cranial nerves 2-12 grossly intact, deep tendon reflexes 2+ symmetrical, motor strength normal upper and lower extremities, sensory exam intact. PSYCH: a lert, oriented. Assessment: * Assessment: 1. M acrocytosis - D75.89 (Primary), Her mean cell volume has increased.. Her hemoglobin and hematocrit are stable. This makes it more likely we are dealing with the dietary factor that is resolving. There is no evidence for neoplastic process. She will continue to be followed without invasive procedures.The reticulocyte remains slightly elevated. . LDH is normal. 2 . H TN (hypertension) - I10, Her blood pressure today was 1147/85.. No change in her regimen seems needed. We discussed sodium restriction and weight loss. She was referred back to primary care 3 . M ixed hyperlipidemia - E78.2, I have recommended regular physical activity combined with weight loss and a healthy diet low in animal fat. 4 . O verweight - E66.3, We have discussed diet and nutrition. We made a plan to lose weight at a rate of one half of a pound per week. 5 . O steopenia, unspecified location - M85.80, Current therapy was continued 6 . R eactive depression - F32.9, Her depression is very mild at this time. She is completing all of the tasks of daily living without impairment. Plan: * Treatment: 2. O thers Continue Bimatoprost Solution, 0.03 %, 1 drop into affected eye in the evening, Ophthalmic, Once a day. * Procedure Codes: * Preventive Medicine: Counseling: C are goal follow-up plan: Counseling for abnormal BMI given Y es Above Normal BMI Follow-up D ietary management education, guidance, and counseling * Follow Up: 4 Months (Reason: OV) * Images: * Sign off status: Completed true * Provider: Meche Stokes MD Date: 0 08/29/2023 Generated for Rocky bran/Inez/eTransmitting on: 0 12/27/2024 11:55 AM EDT History and Physical Notes * HPI (History of Present Illness) Category Sub-Category Detail Notes COVID-19 Screening Questions Have you had any new onset fever, chills, cough, congestion, sore throat, shortness of breath, muscle aches?: No Have you been exposed to the virus withi n the last 10 days?: No Have you travelled internationally in e last 10 days?: No Have you been exposed to COVID-19 in the past?: No Examination Category Sub-Category Detail Notes General Examination GENERAL APPEARANCE: pleasant , well nourished, well developed, in no acute distress, calm and relaxed , overweight , woman HEAD: atraumatic, normocep halic EYES: eomi, perrla, anicte augustine, conjugate EARS: normal NOSE: septum intact NECK/THYROID: no jugular venous di stention, no carotid bruit, thyroid normal HEART: no clicks, gallops, murmurs, or rubs, regular rhythm, S1, S2 normal, no s3, or vascular bruits LUNGS: clear to auscultatio n ABDOMEN: bowel sounds normal, no ascites, no organomegaly, no mass NEUROLOGIC: alert and oriented, cranial nerves 2-12 grossly intact, deep tendon reflexes 2+ symmetrical, motor strength normal upper and lower extremities, sensory exam intact SKIN: no suspicious lesion s, anicteric PERIPHERAL PULSES: normal BREASTS: not examined MUSCULOSKELETAL: extremities unremark able, no clubbing, cyanosis or edema LYMPH NODES: no enlarged lymph no alex,spleen normal RECTAL EXAM: not examined PSYCH: alert, oriented ORAL CAVITY: normal, unremarkable
[2024-12-27 11:24] LABS: MANUAL DIFF FLAG NO
--- OUTSIDE RECORDS SUMMARY | 2024-12-27 11:55 | XMS_ITS | Clinical Summary ---
Author Organization [facility] Address [address] [place] [address] Phone Care Team Providers Care Photolith Operator Name Role Phone Francy Putnam MD Primary Care Provider [phone] Dostal, Immanuel OD Unavailable Allergies Active Allergy Reactions Criticality Noted Date Comments Brimonidine Other (See Comments) Medium 08/25/2021 Weepy, crusty eyes Gadolinium-Containing Contrast Media Shortness Of Breath High 12/15/2021 Iodinated Contrast Media Unknown 06/28/2023 Medications atorvastatin (LIPITOR) 10 MG tablet 2 Active hydroCHLOROthia zide (HYDRODIURIL) 12.5 MG tablet 2 Active raloxifene (EVISTA) 60 mg tablet Take 60 mg by mouth daily. 2 Active citalopram (CELEXA) 20 MG tablet Take 20 mg by mouth daily. 2 Active amoxicillin (AMOXIL) 500 MG capsule PLEASE SEE ATTACHED FOR DETAILED DIRECTIONS 3 Active b complex vitamins (SUPER B-50 COMPLEX) capsule as directed Orally Active calcium carbonate (OS-BERRY) 1,500 mg (600 mg elemental) tablet 1 tablet Orally Once a day Active bimatoprost (LUMIGAN) 0.01 % Drop Place 1 drop into the left eye nightly at bedtime. 10 mL 4 5 Active netarsudiL (RHOPRESSA) 0.02 % ophthalmic solution Place 1 drop into the left eye nightly at bedtime. Dispose of bottle 6 weeks after opening. 10 mL 4 5 Active timolol (TIMOPTIC) 0.5 % ophthalmic solution Place 1 drop into the left eye 2 (two) times a day. 20 mL 4 5 Active Active Problems Problem Noted Date Diagnosed Date HTN (hypertension) Cholesterol calculus of gallbladder Hypercholesterolemia Encounters Date Type Department Care Team Description 11/08/2024 12:45 PM EDT Office Visit [facility] [place] [address] Jenny Doll MD, PhD Primary open angle glaucoma of left eye, severe stage (Primary Dx) from Last 3 Months Family History Medical History Relation Comments Diabetes Father Diabetes Sister Glaucoma Neg Hx Macular degeneration Neg Hx Retinal detachment Neg Hx Relation Status Comments Father Sister Social History Tobacco Use Types Packs/Day Years Used Date Smoking Tobacco: Never Smokeless Tobacco: Never Tobacco Cessation:Counseling Given: Not Answered Alcohol Use Standard Drinks/Week Comments Yes 0 (1 standard drink = 0.6 oz pur e alcohol) Education Answer Date Recorded Are you interested in more education? Not on gia e 09/25/2022 Are you concerned about learning? Not on file 09/25/2022 No 09/25/2022 No 09/25/2022 Digital Access Answer Date Recorded No 10/26/2022 No 10/26/2022 Reliable internet access at home? Not on file 10/26/2022 Device with a working camera? Not on file Comments Unknown Sex and Gender Information Value Date Recorded Sex Assigned at Female 08/18/2021 10:43 AM EDT Legal Sex Female 2:12 PM EST Gender Identity Female 08/18/2021 10:43 AM EDT Sexual Orientation Straight 08/18/2021 10 :43 AM EDT Last Filed Vital Signs Vital Sign Reading Time Taken Comments Blood Pressure 120/59 04/10/2024 9:46 AM EST Pulse 61 04/10/2024 9:46 AM EST Temperature 35.8 C (96.4 F) 04/10/2024 7:12 AM EST Respiratory Rate 16 04/10/2024 9:46 AM EST Oxygen Saturation 100% 04/10/2024 9:46 AM EST Inhaled Oxygen Concentration - - Weight - - Height - - Body Mass Index - - Plan of Treatment Upcoming Encounters Date Type Department Care Team ([facility] st Contact Info) Description 03/28/2025 3:00 PM EDT Procedure visit [facility] in [address] [address] 03/28/2025 3:30 PM EDT Procedure visit [facility] in [address] [address] 03/28/2025 4:00 PM EDT Office Visit [facility] in [address] [address] Jenny Doll MD, PhD [address], [address] [place] [address] [email or web address] Health Maintenance Due Date Last Done Comments Adult Td,Tdap Booster 1955 LIPID PANEL 1955 POTASSIUM LEVEL 1955 DEPRESSION SCREENING 1967 HEPATITIS C SCREENING 11/18/1973 MAMMOGRAM 1995 COLOGUARD 11/18/2000 COLONOSCOPY 11/18/2000 COLORECTAL CANCER SCREENING 11/18/2000 FIT TEST 11/18/2000 FOBT 11/18/2000 SIGMOIDOSCOPY 11/18/2000 VIRTUAL COLONOSCOPY 11/18/2000 ZOSTER VACCINES (1 of 2) 11/18/2005 OSTEOPOROSIS SCREENING INITIAL (ONE-TIME) 11/18/2020 COVID-19 VACCINE ( season) 2024 03/08/2023, 03/08/2023, 03/10/2022, Additional history exists BLOOD PRESSURE 10/08/2024 04/10/2024 RSV VACCINE (1 - 1-dose 75+ series) 11/18/2030 PNEUMOCOCCAL VACCINES (50+ years) Completed 04/14/2022, 04/07/2021 SMOKING STATUS SCREENING (Once After 26 Yrs) Completed 11/08/2024 HEPATITIS A VACCINES Aged Out No long er eligible based on patient's age to complete this topic HIB VACCINES Aged Out No longer eligi ble based on patient's age to complete this topic MENINGOCOCCAL VACCINES (ACWY) Aged Out No longer eligible based on patient's age to complete this topic MENINGOCOCCAL VACCINES (B) Aged Out N o longer eligible based on patient's age to complete this topic Medical Devices Not on file Procedures Procedure Name Priority Date/Time Associated Diagnosis Comments OCT, OPTIC NERVE - OU - BOTH EYES Routine 11/08/2024 1:18 PM EDT Primary open angle glaucoma of left eye, severe stage from Last 3 Months Results * OCT, Optic Nerve - OU - Both Eyes - Cirrus; RNFL (11/08/2024 1:18 PM EDT) Other Narrative HARMONY - 11/08/2024 2:03 PM EDT Right Eye Quality: Good. Retinal nerve fiber layer thickness (um): 64. Optic nerve head and nerve fiber layer: Abnormal superior, Abnormal inferior. Left Eye Quality: Good. Retinal nerve fiber layer thickness (um): 86. Optic nerve head and nerve fiber layer: Abnormal inferior. General Details Testing performed by: [email or web address]. Jenny Doll MD, PhD OPHTHALMOLOGY IMAGING Final Result HARMONPao from Last 3 Months Insurance [employer] O MEDICARE REPLACEMENT [employer] O MEDICARE REPLACEMENT Care Teams Photolith Operator Relationship Specialty Start Date End Date Francy Putnam MD [address] [place] [id number] PCP - General Family Medicine 08/25/21 Immanuel Robledo OD [address] [place] [id number] [email or web address] 07/10/24 Additional Source Comments The information contained in this document represents components of the legal health record. It is not the complete legal health record.[facility]
[2024-12-27 12:09] LABS: Hematocrit 40.8 % (37.0-47.0); Hemoglobin 13.9 g/dl (12.0-16.0); Imm Gran Abs Auto 0.04 X10*3/uL (0.00-0.03); Imm Gran Pct Auto 0.6 % (0.0-0.4); Lymphocytes Absolute Auto 1.6 X10*3/uL (1.2-4.9); Mean Corpuscular HGB Conc 34.1 g/dl (31.0-35.0); Mean Corpuscular Hemoglobin 34.7 pg (27.0-33.0); Mean Corpuscular Volume 101.7 fL (80.0-98.0); NRBC Abs Auto 0.000 X10*3/uL (0.0-0.012); NRBC Pct Auto 0.0 /100WBC (0.0-0.2); Platelet Count 294 X10*3/uL (160-400); Red Blood Count 4.01 X10*6/uL (4.20-5.50); White Blood Count 6.6 X10*3/uL (4.8-10.8)
[2024-12-27 13:03] LABS: Cholesterol 172 mg/dL (<200); HDL Cholesterol 60 mg/dL (>40); Triglycerides 192 mg/dL (<150)
[2024-12-27 13:05] LABS: Alanine Aminotransferase 20 U/L (0-31); Albumin Level 4.5 g/dL (3.5-5.0); Alkaline Phosphatase 61 U/L (39-117); Anion Gap 11 (12-20); Aspartate Amino Transferase 22 U/L (5-31); Blood Urea Nitrogen 16 mg/dL (9-16); Calcium 9.2 mg/dL (8.4-10.2); Carbon Dioxide 29 mmol/L (22-29); Chloride 107 mmol/L (96-108); Estimated Glomerular Filt Rate > 60; Potassium 4.1 mmol/L (3.3-5.1); Sodium 143 mmol/L (135-145); Total Protein 6.6 g/dL (6.5-8.0)
[2024-12-27 13:23] LABS: Ferritin 212 ng/mL (10-250)
[2024-12-27 13:39] LABS: Folate 14.6 ng/mL (> or = 4.0); Vitamin B12 974 pg/mL (200-900)
== END 2024-12-27 11:04 | disposition home or self-care (01) ==
LOC: HO.LAB 11:03
PROVIDERS: Absent Provider Internal Medicine Medical Oncology; PCP Family Medicine; Visit Provider Family Medicine
DX: D75.89 Other specified diseases of blood and blood-forming organs (principal); E78.2 Mixed hyperlipidemia; D53.9 Nutritional anemia, unspecified
CPT/HCPCS: 36415; 80053; 80061; 82607; 82728; 82746; 85025